=== PATIENT | male | born 1950 | race Caucasian/White ===

== ENCOUNTER 2016-12-13 11:39 | Emergency (ER) | payer BC ==
[2016-12-13 11:51] VITALS: BP 143/95
--- NOTE | 2016-12-13 12:13 | ED ---
Back Pain - HPI Summary HPI Summary: 66M presents with right leg pain for 2 days. he admits it to be sharp pain down right leg. He denies any injury. He does have back pain on the right side of his lower back. He has not history of sciatica. He states he has had numbness in his thigh before but now it is just different types of pain. He has been taking Tylenol, ibuprofen, and chiropractor without relief. He denies any loss of bowel or bladder or saddle anaesthesia. - History of Current Complaint Chief Complaint: EDHipPelvisInjury Stated Complaint: RT HIP/LEG PAIN Time Seen by Provider: 12/13/16 11:55 Pain Intensity: 8 - Allergies/Home Medications Allergies/Adverse Reactions: Allergies Allergy/AdvReac Type Severity Reaction Status Date / Time No Known Allergies Allergy Verified 12/01/16 09:53 PMH/Surg Hx/FS Hx/Imm Hx Endocrine/Hematology History: Denies: Hx Diabetes Cardiovascular History: Reports: Hx Coronary Artery Disease, Hx Hypertension - ON MEDS, Hx Myocardial Infarction - 2003 Denies: Hx Congestive Heart Failure, Hx Pacemaker/ICD History: Denies: Hx Renal Disease Sensory History: Denies: Hx Hearing Aid Psychiatric History: Reports: Hx Anxiety Denies: Hx Panic Disorder - Surgical History Surgery Procedure, Year, and Place: TONSILECTOMY. CARPAL TUNNEL RIGHT WRIST Infectious Disease History: No Infectious Disease History: Denies: Traveled Outside the [place] in Last 30 Days - Family History Known Family History: Positive: None, Cardiac Disease, Hypertension - BOTH PARENTS, Other - PROSTATE CA - Social History Alcohol Use: Occasionally Hx Substance Use: No Substance Use Type: Reports: None Hx Tobacco Use: No Smoking Status (MU): Never Smoked Tobacco Review of Systems Negative: Fever Negative: Chest Pain Negative: Shortness Of Breath Positive: Myalgia - right sided back and leg pain All Other Systems Reviewed And Are Negative: Yes Physical Exam Triage Information Reviewed: Yes Vital Signs On Initial Exam: Initial Vitals Temp Pulse Resp BP Pulse Ox 97.8 F 74 16 143/95 97 12/13/16 11:48 12/13/16 11:48 12/13/16 11:48 12/13/16 11:48 12/13/16 11:48 Vital Signs Reviewed: Yes Appearance: Positive: Pain Distress Skin: Positive: Warm, Dry Head/Face: Positive: Normal Head/Face Inspection Eyes: Positive: Normal, Conjunctiva Clear Respiratory/Lung Sounds: Positive: Clear to Auscultation, Breath Sounds Present Cardiovascular: Positive: Normal, RRR Musculoskeletal: Positive: Strength/ROM Intact - back, Other - no midline tender back, tender over right SI joint, pos SLR right Neurological: Positive: Reflexes Intact - patella Diagnostics - Vital Signs Vital Signs Temp Pulse Resp BP Pulse Ox 12/13/16 11:48 97.8 F 74 16 143/95 97 - Laboratory Lab Statement: Any lab studies that have been ordered have been reviewed, and results considered in the medical decision making process. Back Pain Course/Dx - Course Course Of Treatment: 66M presents with right leg pain for 2 days. he admits it to be sharp pain down right leg. He denies any injury. He does have back pain on the right side of his lower back. He states he has had numbness in his thigh before but now it is just different types of pain. on exam tender over SI joint with pos SLR. will treat as scatica with prednisone and flexeril. patient understands and agrees with plan - Diagnoses Differential Diagnosis/HQI/PQRI: Positive: Fracture, Strain, Other - sciatica Provider Diagnoses: Sciatica Discharge - Discharge Plan Condition: Good Disposition: HOME Prescriptions: Cyclobenzaprine TAB* [Flexeril 10 MG TAB*] 10 mg PO TID PRN #9 tab PRN Reason: Pain Gabapentin CAP(*) [Neurontin 100 mg CAP(*)] 200 mg PO TID #15 cap Methylprednisolone [Medrol Dosepak 4 MG*] 4 mg PO .SEE CARLOS INSTRUCTION #1 packet Patient Education Materials: Sciatica (ED) Referrals: Howard Henley MD [Primary Care Provider] - Additional Instructions: Follow directions on package for Medrol pack Take muscle relaxers three times a day for 3 days Take gabapentin three times a day Use ibuprofen or Tylenol for pain every 6-8 hours ice/heat area, move as much as possible Follow up with primary within 5 days Return to ED if develop any new or worsening symptoms
== END 2016-12-13 12:40 | disposition home or self-care (01) ==
LOC: ED 11:39
DX: M54.30 Sciatica, unspecified side (principal); M79.606 Pain in leg, unspecified
CPT/HCPCS: 99281

== ENCOUNTER 2017-09-01 11:37 | Inpatient (IN) | payer BC ==
--- OUTSIDE RECORDS SUMMARY | 2017-09-01 11:51 | XMS REPORT ---
:1950 External Reference #:[id number] Author Organization [facility] Address [address] [address] Phone [phone] Care Team Providers Name Role Phone Bill Deluna MD Care Team Information Professional Model Unavailable Howard Henley MD Primary Care Physician Unavailable Payers Type Date Identification Numbers Payment Provider Subscriber Commercial Effective: Policy Number: [id number] [employer] Wili Edwards 2013 PayID: [id number] [address] [address] [place] [address] Medigap Part B Effective: 2012 Policy Number: [employer] Wili Edwards [id number] Expires: 2013 PayID: [id number] [address] [address] [place] [address] Problems Date Description Provider Status Onset: 07/19/2016 Premature beats Beatrice Rivera M.D. Active Onset: 01/22/2016 Spondylolisthesis L5/S1 level Tu Boss M.D. Active Onset: 01/22/2016 Transient cerebral ischemia Tu Boss M.D. Active Onset: 12/19/2014 Obesity Beatrice Rivera M.D. Active Onset: 03/12/2013 Coronary arteriosclerosis Beatrice Rivera M.D. Active Onset: 03/12/2013 Morbid obesity Beatrice Rivera M.D. Active Onset: 03/12/2013 Pure hypercholesterolemia Beatrice Rivera M.D. Active Onset: 03/12/2013 Essential hypertension Beatrice Winn, M.D. Active Family History Date Family Member(s) Problem(s) Comments General Coronary Artery Disease (CAD) General Prostate Cancer Father Coronary Artery Disease (CAD) 60's Father Prostate Cancer Mother Coronary Artery Disease (CAD) 80's and lived to 96 yo Social History Type Date Description Comments Occupation Publishing Cigarette Use Former Cigarette Smoker ETOH Use Occasionally consumes beer ETOH Use Occasionally consumes liquor Smoking Patient is a former smoker quit smoking 1981 Recreational Drug Use Denies Drug Use Daily Caffeine Consumes on average 4 cups of regular coffee per day Exercise Type/Frequency Exercises sporadically Allergies, Adverse Reactions, Alerts Date Description Reaction Status Severity Comments 03/12/2013 NKDA active 12/19/2014 Pollen active per patient 12/19/2014 Ragweed active per patient Medications Medication Date Status Form Strength Qnty SIG Indications Ordering Provider Zetia Active Tablets 10mg 90tabs 1 by mouth Beatrice 014 every day Miguel, ( taken at M.D. night) Lipitor Active Tablets 80mg 90tabs 1 by mouth Beatrice 013 every Winn, night at M.D. bedtime Multi Complete Active Capsules daily Other 013 Ordering Provider Lisinopril Active Tablets 2.5mg 180tab 1 tab by Beatrice 013 s mouth Miguel, twice a M.D. day Folic Acid Active Tablets 400mcg take one Unknown 000 tablet by mouth every day (supplemen t) Mateo Aspirin Active Tablets DR 81mg 1 by mouth Unknown Ec Low Dose 000 every day Am ( Med change decrease May 2017) Gabapentin Active Capsules 100mg 1 cap po Darlow, 000 Am as frank Sanchez MD Tramadol HCL Active Tablets 50mg 1 tablet Gregorie, 000 po as frank Olivares ( last taken Jun 2017) Aspirin Hx Tablets 325mg 1 po qd Other 013 - Ordering Provider 018 Folic Acid Hx Tablets 800mcg 90tabs 1 po qd Other 013 - Ordering Provider 016 B Complex Plus Hx Tablets 1 po qd Unknown 000 - 014 Sertraline HCL Hx Tablets 25mg 1 tablet Unknown 000 - bid 018 Glucosamine 00/00/0 Hx Capsules 500mg 1 by mouth Unknown 000 - every day 016 Vital Signs Date Vital Result Comment 08/21/2017 Height 66 inches 5'6" Weight 240.00 lb with out shoes Heart Rate 80 /min BP Systolic Sitting 120 mmHg Lue lg cuff BP Diastolic Sitting 70 mmHg Lue lg cuff BP Systolic Standing 100 mmHg Lue lg cuff BP Diastolic Standing 80 mmHg Lue lg cuff Respiratory Rate 17 /min BMI (Body Mass Index) 38.7 kg/m2 07/19/2016 Height 65 inches 5'5" Weight 237.00 lb w/o shoes Heart Rate 100 /min BP Systolic Sitting 116 mmHg Lue, lg cuff BP Diastolic Sitting 76 mmHg Lue, lg cuff BP Systolic Standing 114 mmHg Lue BP Diastolic Standing 76 mmHg Lue Respiratory Rate 16 /min BMI (Body Mass Index) 39.4 kg/m2 Ejection Fraction 55% as of 06/30/03 echo 01/22/2016 Height 65 inches 5'5" Weight 232.00 lb Heart Rate 60 /min BP Systolic Sitting 126 mmHg BP Diastolic Sitting 78 mmHg Respiratory Rate 16 /min Pain Level 5 BMI (Body Mass Index) 38.6 kg/m2 09/01/2015 Height 64.25 inches 5'4.25" Weight 230.00 lb no shoes Heart Rate 102 /min BP Systolic Sitting 126 mmHg Ra lrg cuff BP Diastolic Sitting 70 mmHg Ra lrg cuff BP Systolic Standing 124 mmHg Ra lrg cuff BP Diastolic Standing 72 mmHg Ra lrg cuff Respiratory Rate 16 /min BMI (Body Mass Index) 39.2 kg/m2 02/17/2015 Height 64.25 inches 5'4.25" Weight 229.00 lb with shoes Heart Rate 90 /min BP Systolic Sitting 110 mmHg LA lg cuff BP Diastolic Sitting 74 mmHg LA lg cuff BP Systolic Standing 118 mmHg LA lg cuff BP Diastolic Standing 70 mmHg LA lg cuff Respiratory Rate 18 /min BMI (Body Mass Index) 39.0 kg/m2 12/19/2014 Height 64.25 inches 5'4.25" Weight 230.75 lb with shoes Heart Rate 92 /min BP Systolic Sitting 110 mmHg LA reg cuff BP Diastolic Sitting 80 mmHg LA reg cuff BP Systolic Standing 110 mmHg LA reg cuff BP Diastolic Standing 86 mmHg LA reg cuff Respiratory Rate 17 /min BMI (Body Mass Index) 39.3 kg/m2 04/30/2014 Height 64.25 inches 5'4.25" Weight 219.00 lb no shoes Heart Rate 88 /min BP Systolic Sitting 122 mmHg LA, reg cuff BP Diastolic Sitting 86 mmHg LA, reg cuff BP Systolic Standing 112 mmHg LA BP Diastolic Standing 86 mmHg LA Respiratory Rate 16 /min BMI (Body Mass Index) 37.3 kg/m2 03/12/2013 Height 65 inches 5'5" Weight 217.00 lb Heart Rate 78 /min BP Systolic Sitting 120 mmHg Ra reg cuff BP Diastolic Sitting 84 mmHg Ra reg cuff BP Systolic Standing 122 mmHg Ra BP Diastolic Standing 84 mmHg Ra Respiratory Rate 16 /min BMI (Body Mass Index) 36.1 kg/m2 Results Test Date Test Result H/L Range Note Laboratory test finding 03/28/2016 LDL Cholesterol Direct 55 mg/dL 1 Ast (Sgot) 29 U/L 13-39 Laboratory test finding 01/26/2016 Blood Urea Nitrogen BUN 21 mg/dL 6-24 Creatinine 01/26/2016 Creatinine 0.73 mg/dL 0.67-1.17 Egfr Non- 108.5 >60 Egfr 139.6 >60 2 Lipid Profile (Trig/Chol/HDL) 04/05/2013 Triglycerides 88 mg/dL 40-200 Cholesterol 230 mg/dL High Less than 200 HDL Cholesterol 46 mg/dL 40-60 3 Cholesterol/HDL Ratio 5.0 Average High 1-4.44 LDL Cholesterol 166.4 High Less Than 100 4 1 Desirable: <100 mg/dL Near Optimal: 100-129 mg/dL Borderline High: 130-159 mg/dL High: 160-189 mg/dL Very High: >189 mg/dL 2 Because ethnic data is not always readily available, this report includes an eGFR for both -Americans and non- Americans. The National Kidney Disease Education Program (NKDEP) does not endorse the use of the MDRD equation for patients that are not between the ages of 18 and 70, are , have extremes of body size, muscle mass, or nutritional status, or are non- or non-. According to the National Kidney Foundation, irrespective of diagnosis, the stage of the disease is based on the level of kidney function: Stage Description GFR(mL/min/1.73 m(2)) 1 Kidney damage with normal or decreased GFR 90 2 Kidney damage with mild decrease in GFR 60-89 3 Moderate decrease in GFR 30-59 4 Severe decrease in GFR 15-29 5 Kidney failure <15 (or dialysis) 3 HDL Interpretation: Undesirable: High Risk: Less than 40 mg/dL Desirable: Low Risk: Greater than 60 mg/dL 4 LDL Interpretation: Low Risk Optimal Level: LDL Less than 100 mg/dL Near or Above Optimal: LDL 100-129 mg/dL Borderline High Risk: LDL 130-159 mg/dL High Risk: LDL 160-189 mg/dL Very High Risk: LDL Greater than 189 mg/dL Procedures Date CPT Code Description Status 08/21/2017 24260 EKG Tracing & Interpretation Completed 08/16/2016 22238 Stress Test Completed 07/19/2016 24916 EKG Tracing & Interpretation Completed 12/19/2014 08675 EKG Tracing & Interpretation Completed 06/10/2014 84789 Stress Test Completed 04/30/2014 34193 EKG Tracing & Interpretation Completed 04/22/2013 56246 Stress Test Completed 03/12/2013 57384 EKG Tracing & Interpretation Completed Encounters Type Date Location Provider CPT E/M Dx Office Visit 08/21/2017 [facility] Hafsa Rivera M.D. 14646 I25.10 2:40p Aircraft [employer]er I10 E78.00 Z68.38 Office Visit 07/19/2016 9:00a [facility] Hafsa Rivera M.D. 55251 I25.10 [facility] Z68.39 I49.3 I10 E78.00 Office Visit 01/22/2016 10:45a [facility] Tu Boss M.D. 96269 G45.9 Of [facility] M43.17 M62.81 R20.2 Office Visit 11/21/2015 3:40p [facility] Renay Brooks 62482 R20.9 Dylon R53.1 N39.3 Office Visit 09/01/2015 8:30a [facility] Hafsa Rivera M.D. 66074 I25.10 [employer]er E78.0 I10 E66.09 Office Visit 02/17/2015 10:00a [facility] Hafsa Rivera M.D. 33660 414.01 Aircraft [employer]er 272.0 Office Visit 12/19/2014 3:15p [facility] Beatrice Rivera M.D. 97786 414.01 [facility] 401.9 272.0 278.00 Office Visit 04/30/2014 8:15a [facility] Hafsa Rivera M.D. 70208 414.01 [facility] 401.9 272.0 278.01 786.50 Office Visit 03/12/2013 11:30a [facility] Beatrice Rivera M.D. 71172 401.9 [facility] 272.0 278.01 414.01 Plan of Care Future Appointment(s):09/14/2017 3:30 pm - Edda Dumont N.P. at [facility]09/08/2017 7:00 am - [facility] Nuclear Schedule at [facility]08/21/2017 - Beatrice Rivera M.D.I25.10 Athscl heart disease of [place] coronary artery w/o ang pctrsNew Orders:EchocardiogramFollow up:After echo, (or [employer] if I am not available) Annual OVI10 Essential (primary) [id number] Pure hypercholesterolemia, [id number] Body mass index (BMI) 38.0-38.9, adult
[2017-09-01] MEDS ORDERED: Methocarbamol TAB* 500 MG PO ONE (12:40)
[2017-09-01] MEDS ORDERED: HYDROcodone/ACETAMIN 5-325 MG* 1 TAB PO ONE (12:40)
--- NOTE | 2017-09-01 12:41 | ED ---
Back Pain - HPI Summary HPI Summary: 66 mg ED with complaints of right lower back pain that began this morning upon waking up. Patient states he has had a violent cough for the past week or so and feels this may have exacerbated his back pain. He is concerned because he had surgery on his lower back L3-L4 disc in March 2017, by Dr Mercado at [facility]. He has not had any complications or problems since until recently. Denies any numbness tingling, weakness, bladder/bowel incontinence or saddle anesthesia. Patient took 400 mg of ibuprofen today around 9 AM with some relief. However over the past few hours his pain has increased. Denies any urinary symptoms no history of kidney stone. States the pain radiates from his right lower back down to his right leg. Describes the pain to be a constant nagging pain similar to the pain he had prior to his back surgery. No abdominal pain chest pain and trouble breathing or other complaints at this time. Past medical history significant for OR, hypertension, high cholesterol. No fever or chills. No other recent trauma or injury other than coughing fits. ---A few hours after arrival began having weakness and paresthesia of right lower leg, below the knee as described in physical exam, re-evals, and course of treatment. - History of Current Complaint Chief Complaint: EDBackInjuryPain Stated Complaint: LOW BACK PAIN Time Seen by Provider: 09/01/17 12:03 Hx Obtained From: Patient Onset/Duration: Sudden Onset, Lasting Hours, Still Present, Worse Since Onset/Duration: Started Hours Ago, Still Present Timing: Constant Back Pain Location: Is Discrete @ - Right lower back Severity Initially: Mild Severity Currently: Moderate Pain Intensity: 7 Pain Scale Used: 0-10 Numeric Character: Aching Aggravating Symptom(s): Movement - Changing positions, Walking - Weight-bearing Alleviating Symptom(s): Rest, OTC Meds - Ibuprofen helped some Associated Signs And Symptoms: Positive: Pain with Weight Bearing. Negative: Swelling, Redness, Bruising, Weakness, Numbness, Tingling, Abdominal Pain, Bladder Incontinence, Bowel Incontinence - Risk Factors AAA Risk Factors: Hypertension, Atherosclerosis TAD Risk Factors: Negative Cauda Equina Risk Factors: Negative Epidural Abscess Risk Factors: Negative - Allergies/Home Medications Allergies/Adverse Reactions: Allergies Allergy/AdvReac Type Severity Reaction Status Date / Time No Known Allergies Allergy Verified 09/01/17 12:02 PMH/Surg Hx/FS Hx/Imm Hx Endocrine/Hematology History: Denies: Hx Diabetes Cardiovascular History: Reports: Hx Coronary Artery Disease, Hx Hypertension - ON MEDS, Hx Myocardial Infarction - 2003 Denies: Hx Congestive Heart Failure, Hx Pacemaker/ICD History: Denies: Hx Renal Disease Sensory History: Denies: Hx Hearing Aid Psychiatric History: Reports: Hx Anxiety Denies: Hx Panic Disorder - Surgical History Surgery Procedure, Year, and Place: TONSILECTOMY. CARPAL TUNNEL RIGHT WRIST. L4/L5 back surgery march 2017 - Immunization History Immunizations Up to Date: Yes Infectious Disease History: No Infectious Disease History: Denies: Traveled Outside the [place] in Last 30 Days - Family History Known Family History: Positive: None, Cardiac Disease, Hypertension - BOTH PARENTS, Other - PROSTATE CA - Social History Alcohol Use: Occasionally Hx Substance Use: No Substance Use Type: Reports: None, Prescribed Hx Tobacco Use: No Smoking Status (MU): Former Smoker Review of Systems Constitutional: Negative - I Cardiovascular: Negative Respiratory: Negative Positive: Arthralgia, Myalgia - back pain Skin: Negative All Other Systems Reviewed And Are Negative: Yes Physical Exam Triage Information Reviewed: Yes Vital Signs On Initial Exam: Initial Vitals Temp Pulse Resp BP Pulse Ox 96 F 102 16 130/85 97 09/01/17 11:44 09/01/17 11:44 09/01/17 11:44 09/01/17 11:44 09/01/17 11:44 Vital Signs Reviewed: Yes Appearance: Positive: Well-Appearing, No Pain Distress - Resting comfortably in stretcher however with moving changing positions mild to moderate discomfort, Well-Nourished Skin: Positive: Warm, Skin Color Reflects Adequate Perfusion, Dry, Other - No edema or ecchymosis or signs of trauma/deformity. Negative: Cold, Numb, Cyanosis @, Pale, Erythema @ Head/Face: Positive: Normal Head/Face Inspection Eyes: Positive: Conjunctiva Clear ENT: Positive: Pharynx normal Neck: Positive: Supple Respiratory/Lung Sounds: Positive: Clear to Auscultation, Breath Sounds Present. Negative: Rales, Rhonchi, Wheezes Cardiovascular: Positive: Normal, RRR, Pulses are Symmetrical in both Upper and Lower Extremities. Negative: Murmur, Rub Abdomen Description: Positive: Nontender, Soft Bowel Sounds: Positive: Present Musculoskeletal: Positive: Normal, Strength/ROM Intact - Right lower extremity strength (2/5) with flexion of hip and extension of right LE knee and decreased significantly compared to left lower extremity, Pain @ - With changing positions right lower back. On palpation of right lower back region L4-S2 right paraspinal muscle, Other - No spinal tenderness.. Negative: Limited @, Interruption @, Abnormal @, Edema Left, Edema Right Neurological: Positive: Normal, Sensory/Motor Intact, Alert, Oriented to Person Place, Time, Reflexes Intact, NV Bundle Intact Distally - slight paresthesia that began over medial lower calf along L3/L5 innervation, Unable to Assess Gait - was able to walk into ED however during stay began having weakness of RLE and unable to walk without RLE giving out when doing so Diagnostics - Vital Signs Vital Signs Temp Pulse Resp BP Pulse Ox 09/01/17 11:44 96 F 102 16 130/85 97 - Laboratory Result Diagrams: 09/01/17 15:38 09/01/17 15:38 Lab Statement: Any lab studies that have been ordered have been reviewed, and results considered in the medical decision making process. - CT lumbar spine CT Interpretation: Positive (See Comments) - No fracture of the lumbar spine is noted. There is grade 1 spondylolisthesis of L5 on S1 with spondylolysis of the pars interarticularis at L5 on the right. Calcified posterior longitudinal ligament is noted at L4-L5. There is suggestion of a right paracentral disc extrusion which may impinge upon the right exiting nerve root at L4 on the right. The disc appears to be migrating from the L3-L4 disc space. At L3-L4 broad-based protrusion may narrow the intervertebral foramen bilaterally. Additionally there is a soft tissue presumed extrusion migrating inferiorly impinging upon the right lateral recess and right descending L4 nerve root. At L2-L3 broad-based protrusion flattens the thecal sac. L1-L2 vacuum disc phenomenon with left paracentral disc protrusion indenting the thecal sac. CT Interpretation Completed By: Radiologist Re-Evaluation - Re-Evaluation First Eval Re-Evaluation Time: 13:40 Change: Worse - Pain and muscle spasms improved after Robaxin and [place] for pain. however began having difficulty with extending right leg and increased weakness/paresthesia of medial lower calf (L3-L5 innervation). Updated on CT results. Second Eval Re-Evaluation Time: 14:58 Change: Unchanged - still feeling the same as before, updated waiting computational theory scientist back from patients neurosurgeon, Dr Mercado at [facility]. almost fell to ground upon attempting to walk due to weakness of right lower leg, knee down Third Eval Re-Evaluation Time: 15:36 Change: Unchanged - updated spoke with Dr Mercado who stated needs an MRI Back Pain Course/Dx - Course Course Of Treatment: Normal physical exam other than right side lower back pain that however worsened upon re-eval and began having right lower leg weakness with extension and weight bearing along with a mild paresthesia of medial calf along L3/L4 innervation. Given [place] and Robaxin for pain and muscle spasms and did have relief, however weakness still progressed. CT obtained and showed multiple degenerative changes and disc protrusions throughout L3-S2. Spoke with Dr Mercado, Patient's neuro surgeon who did his recent surgery in March of 2017, at 3:15pm who stated patient needs an MRI with contrast. Labs obtained. Patient understands and agrees with plan. Patient will be signed out to [facility] pending patient's MRI/results. Also spoke with Dr Contreras about case. - Diagnoses Differential Diagnosis/HQI/PQRI: Positive: Cauda Equina Syndrome, Compressive Cord Syndrome, Herniated Disc, Strain, Sprain Provider Diagnoses: Low back pain, Weakness of right lower extremity, Paresthesia of right lower extremity - Provider Notifications Discussed Care Of Patient With: Dr Mercado, Neurosurgery [facility], [facility] Edge Time Discussed With Above Provider: 15:15 Instructed by Provider To: Other - obtain MRI Discharge - Sign-Out/Discharge Documenting (check all that apply): Sign-Out Patient Signing out patient TO: Milagro Yañez - at shift change 5:30pm - Discharge Plan Condition: Good Referrals: Howard Henley MD [Primary Care Provider] - - Billing Disposition and Condition Condition: GOOD
--- NOTE | 2017-09-01 13:56 | RAD ---
Indication: Back pain, surgery at L4-L5. CT of the lumbar spine was obtained in the axial plane. Sagittal and coronal reconstructed images were obtained. There is grade 1 spondylolisthesis of L5 on S1. There is right-sided spondylolysis of the pars interarticularis. Degenerative changes of the left facet joint is noted. Broad-based protrusion is noted. At L4-L5 there is degenerative disc disease with broad-based protrusion. There is calcification of the posterior longitudinal ligament. There is suggestion of soft tissue in the right lateral recess which appears to have migrated inferiorly from the L3-L4 level impinging upon the right L4 nerve root. Facet arthropathy is noted bilaterally. Mild spinal stenosis is noted. At L3-L4 broad-based protrusion flattens the thecal sac. Again noted is a right paracentral to right posterolateral disc extrusion which indents the right thecal sac and narrows the right lateral recess with disc migrating inferiorly impinging upon the right L4 nerve root. Mild facet arthropathy is noted. No fracture is noted. At L2-L3 there is degenerative disc disease. Spondylitic ridge flattens the thecal sac. Facet arthropathy is noted. At L1-L2 there is a left paracentral disc protrusion indenting the thecal sac. No foraminal stenosis is noted. No evidence of fracture is noted. At T12-L1 spondylitic ridge with calcified posterior longitudinal ligament is noted indenting the thecal sac. No central or foraminal stenosis is noted. IMPRESSION: No fracture of the lumbar spine is noted. There is grade 1 spondylolisthesis of L5 on S1 with spondylolysis of the pars interarticularis at L5 on the right. Calcified posterior longitudinal ligament is noted at L4-L5. There is suggestion of a right paracentral disc extrusion which may impinge upon the right exiting nerve root at L4 on the right. The disc appears to be migrating from the L3-L4 disc space. At L3-L4 broad-based protrusion may narrow the intervertebral foramen bilaterally. Additionally there is a soft tissue presumed extrusion migrating inferiorly impinging upon the right lateral recess and right descending L4 nerve root. At L2-L3 broad-based protrusion flattens the thecal sac. L1-L2 vacuum disc phenomenon with left paracentral disc protrusion indenting the thecal sac.
[2017-09-01 15:51] LABS: Hematocrit 41 % (42-52); Hemoglobin 14.2 g/dl (14.0-18.0); Mean Corpuscular HGB Conc 35 g/dl (31-36); Mean Corpuscular Hemoglobin 32 pg (27-31); Mean Corpuscular Volume 90 fL (80-94); Mean Platelet Volume 7.5 um3 (7.4-10.4); Platelet Count 239 10^3/ul (150-450); Red Blood Count 4.51 10^6/ul (4.0-5.4); Red Cell Distribution Width 13 % (10.5-15); White Blood Count 8.5 10^3/ul (3.5-10.8)
[2017-09-01 16:19] LABS: EGFR Non-African American 109.9 (>60)
[2017-09-01] MEDS ORDERED: Gadoteridol* (CONTRAST) 279.3 MG/ML 10 ML IV ONE (16:42)
[2017-09-01 17:19] LABS: Urine Appearance Clear; Urine Blood Negative (Negative); Urine Color Yellow; Urine Ketones Negative (Negative); Urine Protein Negative (Negative); Urine Specific Gravity 1.015 (1.010-1.030); Urine Urobilinogen Negative (Negative)
--- NOTE | 2017-09-01 17:28 | RAD ---
HISTORY: Right leg weakness, numbness COMPARISONS: December 06, 2016 TECHNIQUE: The following sequences were obtained of the lumbar spine: Sagittal and axial T1- and T2-weighted images, coronal T2-weighted images, and sagittal STIR images. Additionally, axial and sagittal T1 weighted images were obtained after contrast enhancement with a gadolinium-based intravenous contrast agent.. FINDINGS: SPINAL CORD, CONUS, AND CAUDA EQUINA: The visualized spinal cord, conus, and cauda equina are normal in caliber, position, and signal intensity. ALIGNMENT: There is grade 1 anterolisthesis of L5 on S1. This is stable from the previous examination. VERTEBRAL BODIES: There is multilevel anterolateral marginal osteophyte formation. JOINTS: There is facet hypertrophic change diffusely MUSCULATURE: There is mild fatty infiltration. INTERVERTEBRAL DISCS: There is diffuse loss of intervertebral disc height and T2 signal throughout the spine. AXIAL IMAGES: T10-T11: There is broad-based disc bulge. There is bilateral facet hypertrophy. There is moderate bilateral neural foraminal narrowing. There is mild narrowing of the central canal. T11-T12: There is bilateral facet hypertrophy. There is mild bilateral neural foraminal narrowing. There is no significant central canal stenosis.L1-L2: There is no disc herniation, spinal stenosis, or neuroforaminal narrowing.. T12-L1: There is a small broad-based central disc protrusion measuring 0.3 cm in depth. There is no significant neural foraminal narrowing or central canal stenosis. L1-L2: There is bilateral facet hypertrophy. There is a left lateral recess inferior disc extrusion measuring 0.6 cm in depth and 0.9 cm in craniocaudal dimension. This is not clearly seen on the previous examination. This encroaches upon the descending nerve root on the left. There is bilateral facet hypertrophy. There is no significant neural foraminal narrowing or central canal stenosis. L2-L3: There is broad based disc bulge at bilateral facet hypertrophy. There is mild bilateral neural foraminal narrowing. There is no significant central canal stenosis. L3-L4: There is broad-based disc bulge at bilateral facet and ligamentous hypertrophy. There is moderate bilateral neural foraminal narrowing. There is mild narrowing of the central canal. There is a superimposed right lateral recess inferior disc extrusion measuring 1.2 cm in depth and 1.7 cm in cranial caudal dimension. This is developed from the previous examination. This abuts and displaces the descending nerve roots on the right. L4-L5: There is a broad-based disc bulge with a central disc protrusion measuring 0.3 cm in depth. This is similar to the previous examination. There is bilateral facet hypertrophy. There is moderate right and mild left neural foraminal narrowing. There is no significant central canal stenosis. L5-S1: There is a broad-based disc bulge/rolled disc. There is bilateral facet hypertrophy. There is severe bilateral neuroforaminal narrowing. There is no significant central canal stenosis. SOFT TISSUES: There is post surgical enhancement in the soft tissues posterior to the lumbar spine most pronounced at L2-L3 and L3-L4. There is no significant abnormal epidural enhancement. OTHER: None. IMPRESSION: 1. SPONDYLOLISTHESIS. 2. DEGENERATIVE DISC DISEASE AND OSTEOARTHRITIS. 3. THERE IS A LARGE RIGHT-SIDED INFERIOR DISC EXTRUSION AT L3-L4 WITH MASS EFFECT UPON THE DESCENDING NERVE ROOTS. 4. THERE IS A LEFT-SIDED INFERIOR DISC EXTRUSION AT L1-L2, ENCROACHING UPON THE DESCENDING NERVE ROOTS. 5. THERE IS A SMALL CENTRAL DISC FUSION AT T12-L1. THERE IS A SMALL CENTRAL DISC PROTRUSION AT L4-L5. 6. THERE IS MULTILEVEL NEURAL FORAMINAL NARROWING DESCRIBED ABOVE. 7. THERE IS MILD NARROWING OF THE CENTRAL CANAL AT L3-L4. 8. THERE HAS BEEN PROGRESSION OF DISEASE COMPARED TO DECEMBER 06, 2016.
--- NOTE | 2017-09-01 18:43 | ED ---
Progress - Progress Note Progress Note: sign out receive from Barbara ARREGUIN pending dispo MRI: IMPRESSION: 1. SPONDYLOLISTHESIS. 2. DEGENERATIVE DISC DISEASE AND OSTEOARTHRITIS. 3. THERE IS A LARGE RIGHT-SIDED INFERIOR DISC EXTRUSION AT L3-L4 WITH MASS EFFECT UPON THE DESCENDING NERVE ROOTS. 4. THERE IS A LEFT-SIDED INFERIOR DISC EXTRUSION AT L1-L2, ENCROACHING UPON THE DESCENDING NERVE ROOTS. 5. THERE IS A SMALL CENTRAL DISC FUSION AT T12-L1. THERE IS A SMALL CENTRAL DISC PROTRUSION AT L4-L5. 6. THERE IS MULTILEVEL NEURAL FORAMINAL NARROWING DESCRIBED ABOVE. 7. THERE IS MILD NARROWING OF THE CENTRAL CANAL AT L3-L4. 8. THERE HAS BEEN PROGRESSION OF DISEASE COMPARED TO DECEMBER 06, 2016. Barbara spoke to Dr Pruitt at [facility] who said that is is up to patient where can have surgical consult. Barbara spoke with dr bland at 5:45 and states would be happy to consult. After further discussion with Barbara patient agrees to stay at [facility]. Dr. Bland asked that the hospitalist admit the patient for pain control and inability to ambulate. I spoke with the hospitalist who agreed to admit patient. Dr bland will consult and potentially take to OR tomorrow. Re-Evaluation - Re-Evaluation First Eval Re-Evaluation Time: 13:40 Change: Worse - Pain and muscle spasms improved after Robaxin and New[place] for pain. however began having difficulty with extending right leg and increased weakness/paresthesia of medial lower calf (L3-L5 innervation). Updated on CT results. Second Eval Re-Evaluation Time: 14:58 Change: Unchanged - still feeling the same as before, updated waiting semiconductor assembler back from patients neurosurgeon, Dr Mercado at [facility]. almost fell to ground upon attempting to walk due to weakness of right lower leg, knee down Third Eval Re-Evaluation Time: 15:36 Change: Unchanged - updated spoke with Dr Mercado who stated needs an MRI Course/Dx - Course Course Of Treatment: Normal physical exam other than right side lower back pain that however worsened upon re-eval and began having right lower leg weakness with extension and weight bearing along with a mild paresthesia of medial calf along L3/L4 innervation. Given New[place] and Robaxin for pain and muscle spasms and did have relief, however weakness still progressed. CT obtained and showed multiple degenerative changes and disc protrusions throughout L3-S2. Spoke with Dr Mercado, Patient's neuro surgeon who did his recent surgery in March of 2017, at 3:15pm who stated patient needs an MRI with contrast. Labs obtained. Patient understands and agrees with plan. Patient will be signed out to Tawana ARREGUIN pending patient's MRI/results. Also spoke with Dr Contreras about case. - Diagnoses Provider Diagnoses: Low back pain, Weakness of right lower extremity, Paresthesia of right lower extremity - Provider Notifications Time Discussed With Above Provider: 15:15 Instructed by Provider To: Other - obtain MRI Discharge - Sign-Out/Discharge Documenting (check all that apply): Receiving Sign-Out Receiving patient FROM: Barbara Oviedo - Discharge Plan Condition: Good Disposition: ADMITTED TO [facility] Referrals: Howard Henley MD [Primary Care Provider] - - Billing Disposition and Condition Condition: GOOD Disposition: [facility]OSP-[facility]
[2017-09-01] MEDS ORDERED: Ondansetron INJ* 2 MG/ML VIAL IV PRN (19:25)
[2017-09-01] MEDS ORDERED: HYDROcodone/ACETAMIN 5-325 MG* 1 TAB PO PRN (19:25)
[2017-09-01] MEDS ORDERED: Cyclobenzaprine TAB* 10 MG PO PRN (19:25)
[2017-09-01] MEDS ORDERED: Morphine INJ* 2 MG/ML 1 ML CARPUJECT IV PRN (19:25)
[2017-09-01] MEDS ORDERED: Acetaminophen TAB* 325 MG PO PRN (19:25)
--- NOTE | 2017-09-01 20:07 | RAD ---
HISTORY: Hypertension, coronary artery disease COMPARISONS: December 03, 2007 VIEWS: 1: frontal portable view of the chest at 7:51 PM FINDINGS: LINES AND TUBES: None. CARDIOMEDIASTINAL SILHOUETTE: The cardiomediastinal silhouette is normal for portable technique. PLEURA: The costophrenic angles are sharp. No pleural abnormalities are noted. LUNG PARENCHYMA: The lungs are clear. ABDOMEN: The upper abdomen is clear. There is no subphrenic gas. BONES AND SOFT TISSUES: No bone or soft tissue abnormalities are noted. IMPRESSION: NO ACTIVE CARDIOPULMONARY DISEASE.
[2017-09-01] MEDS: predniSONE TAB* 20 MG PO SCH (23:15)
[2017-09-01] MEDS: Atorvastatin* 80 MG TAB PO SCH (23:15)
[2017-09-01] MEDS: Sertraline* 25 MG TAB PO SCH (23:15)
[2017-09-01] MEDS: Lisinopril TAB* 5 MG PO SCH (23:16)
--- NOTE | 2017-09-01 23:22 | HP ---
CC: Dr. Henley; Dr. Munoz * HISTORY AND PHYSICAL: DATE OF ADMISSION: 09/01/17 PRIMARY CARE PROVIDER: Dr. Henley. ATTENDING PHYSICIAN WHILE IN THE HOSPITAL: Viki Ravi MD * (report dictated by Mayo Borges NP). CHIEF COMPLAINT: Back pain. HISTORY OF PRESENT ILLNESS: Mr. Edwards is a 66-year-old male patient. He has a history of CAD and an ME in 2003, on medical management only. He has a history of left foot fracture, seasonal allergies, hypertension, hyperlipidemia, anxiety. He comes in to the ER today. He states in March he had surgery with Dr. De La Garza to his lumbar spine. He does not really know what level exactly. Initially, he has been doing great. He returned to work. He has been really pain-free; however, unfortunately, he woke up this morning and he does not really remember any precipitating factors that may have aggravated his back, but he woke up this morning, he had some back pain he thought may be, so he just took some ibuprofen and he felt better. He took a couple of ibuprofen and proceeded to go to work. While at work, he still had progressive worsening back pain. He says that the pain was really going down from the right side, down to the knee, down the front of the lower leg and to the medial aspect of his lower leg and just stopping at the ankle. He got progressively worse. He felt that he just had to go to the ER because of this history. His coworkers called the ambulance and got him into the hospital today. He states he has not had any trouble with bowel or bladder incontinence. He got here in the ED. He was initially treated with appropriate pain management. He was feeling better; however, he noticed here that when he went to extend his right leg, he could flex it, but when he went to extend the knee, he could not extend it and this was concerning and then he tried walking and ambulating, but he was having difficulty doing this. He also noted that whenever he tried get up or walk down here, he had a significant amount of pain particularly in his back. He had tried several rounds of pain medications here and interventions with no avail. Ultimately, he did have an MRI of the lower spine and there was concerning for a protruding disk at L3-4. So because of these findings, we were asked to evaluate. He denies having any chest pain or shortness of breath. He states the back does not bother him, he is feeling well, he is able to walk up a flight of stairs with no chest pain or shortness of breath. He denies any recent fevers or chills. He does state that he is getting over a sinus infection. He states he has not been coughing in the last couple of days , but he does state that he had some rhinorrhea and he had sinus drainage that he took [id number] medications and he states that he seems to have gotten over this and we feel that he feels much better in the last couple of days with the exception of his back. He denied any nausea or vomiting. Because of the persistent back pain, we were asked to evaluate for admission. PAST MEDICAL HISTORY: Significant for: 1. CAD. 2. ME in 2003. 3. Left foot fracture. 4. Seasonal allergies. 5. Hypertension. 6. Hyperlipidemia. 7. Anxiety. PAST SURGICAL HISTORY: 1. He has had a tonsillectomy. 2. Carpal tunnel. 3. Back surgery just done in March, he presumes it was lumbar spine surgery. 4. He has had a cyst removed from his right neck. FAMILY HISTORY: His mother at the age of 97 from hypertension. Father had prostate cancer, COPD, and Parkinson's. MEDICATIONS: Home meds according to the list we were able to obtain includes: 1. Zoloft 25 mg p.o. b.i.d. 2. Ibuprofen 200 mg every 6 hours as needed. 3. Folic acid 1 mg p.o. daily. 4. Aspirin 81 mg daily. 5. Multivitamin 1 tablet daily. 6. Lisinopril 2.5 mg p.o. b.i.d. 7. Zetia 10 mg p.o. daily. 8. Lipitor 80 mg p.o. at bedtime. ALLERGIES TO MEDICATIONS: Include no known drug allergies. SOCIAL HISTORY: He is a former smoker, he quit in . He occasionally drinks wine. Surrogate decision maker will be his brother, Tu. REVIEW OF SYSTEMS: There is no documented fever. He denied having any significant weight change. There was no double vision. He denies having any ear discharge. There was rhinorrhea, but none now. Denies any sore throat. No thyroid enlargement. Denies having any chest pain. There is no orthopnea. There is no nocturnal dyspnea. He denied having any abdominal pain. There is no nausea, no vomiting, no dysuria, no frequency, no seizure, no loss of consciousness, no pruritus and no skin ulcerations. Review of 14 systems was completed, all others negative. PHYSICAL EXAMINATION GENERAL: At this time, Mr. Edwards is a 66-year-old male patient. He is sitting in the ED stretcher. He does not appear to be in any acute distress. VITAL SIGNS: Blood pressure 121/82 with a pulse 82, respirations 18, O2 sat 96% , temperature 98.8. HEENT: Head: Atraumatic, normocephalic. Eyes: EOMs are intact. Sclerae anicteric, not pale. Throat: Oral mucosa appears to be moist. No oropharyngeal erythema. NECK: Supple. LUNGS: Clear to auscultation bilaterally. No wheezes, rales, or rhonchi. HEART: Sounds S1, S2. Regular rate and rhythm. No murmurs, rubs, or gallops. ABDOMEN: Soft. It was flat, nontender. Bowel sounds were present. EXTREMITIES: Pulses were 2+ throughout. He is moving his upper extremities with 5/5 strength. He has difficulty with knee extension in the right lower extremity. He has good flexion with 5/5 strength. Dorsi and plantar flexion in that right leg had 5/5 strength. He had hip flexion and extension with 5/5 strength as well. NEUROLOGIC: He is awake, alert, oriented x3. He had deficit that he did have and he cannot extend his right lower extremity. He can flex, but he cannot extend it. No gross focal deficits. SKIN: Intact. DIAGNOSTIC STUDIES/LAB DATA: WBC 8.5, RBC of 4.51, hemoglobin of 14.2, hematocrit of 41, platelet count 239. Sodium is 134, potassium 4.1, chloride of 99, bicarb of 29, BUN 13, creatinine of 0.72, glucose 132, calcium 9.2. Total bili 0.5, AST 21, ALT 27, alk phos 46. Albumin was 3.8. Urine was obtained, it was negative. He did have a lumbar spine MRI, impression: Spondylolisthesis, degenerative disk disease, and osteoarthritis. There is a large right-sided inferior disk extrusion at L3-4 with mass effect upon the descending nerve roots. There is left-sided inferior disk extrusion at L1-L2 encroaching upon the descending nerve roots. There is a small central disk extrusion at T12-L1. There is a small central disk protrusion at L4-5. There is multilevel neural foraminal narrowing as described above. There is mild narrowing of the central canal at L3-4. There has been progression of disease compared to the MRI of 2017. Lumbar CT, impression: No fracture of the spine is noted, grade I spondylolisthesis L5 and S1 with spondylolisthesis of the pars interarticularis at L5 on the right. Calcified posterior longitudinal ligament is noted at L4- 5. There is suggestion of a right paracentral disk extrusion, which may impinging upon the right exiting nerve root at L4 on the right. The disk appears to be migrating from the L3-4 disk space. The L3-4 broad-based protrusion may narrow the intervertebral foramen bilaterally. Additionally, there has been soft tissue, presumed extrusion migrating inferiorly impinging upon the right lateral recess and right thinning L4 nerve root. L2-3 broad based protrusion flattened the thecal sac, L1-L2 vacuum disk phenomenon with left paracentral disk protrusion indenting the thecal sac. He had an EKG obtained today showing a normal sinus rhythm, rate of 84, no ST elevations or T-wave inversion. Old medical records were reviewed. ASSESSMENT AND PLAN: Mr. Edwards is a 66-year-old male patient with multiple medical problems, coming into the hospital today with complaints of back pain and now right lower extremity weakness. We were asked to evaluate for admission. He will be admitted under observation status for: 1. Lumbar radiculopathy and myelopathy. I did touch base with Dr. Munoz. He will be evaluating the patient tonight. The plan would be to continue his steroids, pain management, PT evaluation. I will have Dr. Munoz evaluate and to see if surgery is most likely indicated, but I will defer that recommendation to Dr. Munoz. In terms of RCRI, his RCRI is moderate risk with a history of coronary artery disease, but he has not had any cardiac symptoms of late. I do think an EKG, which I have obtained is stable. In addition to this, we will get a chest x-ray. If the chest x-ray is stable, then I would state that he is medically optimized. I would recommend continuing his aspirin as soon as possible given his disease process. Given the history of coronary artery disease, I would recommend continuing with aspirin. We will continue his beta-mike. 2. Coronary artery disease. He is on aspirin and statin therapy. We will continue with these medications for the time being and Zetia and we will continue his lisinopril with the exception, we will hold it tomorrow morning if surgery is going to be pursued. 3. Hyperlipidemia. Continue statin therapy. 4. Seasonal allergies. Continue meds as prescribed. 5. Hypertension. Continue lisinopril with the exception of tomorrow morning. We will hold this and then restart in the postoperative setting if surgery is pursued. 6. DVT prophylaxis. Because there is possible spinal surgery tomorrow, I am just going to place him on SCDs. 7. Code status. Full code. 8. Fluids, electrolytes, and nutrition. He can have a heart healthy diet and n.p.o. after midnight. TIME SPENT: On admission 60 minutes, greater than half the time spent face-to- face with the patient obtaining my history and physical; other half time spent going over the plan of care with the patient and implementing plan of care. I discussed the plan of care with my attending, Dr. Ravi; she is in agreement. MAYO BORGES NP [id number]/CPS #: [id number] CAREN
--- NOTE | 2017-09-02 01:27 | CONS ---
Amended report to enter date of consultation. CONSULTATION REPORT: DATE OF CONSULT: 09/01/2017. HISTORY OF PRESENT ILLNESS: The patient is a very pleasant 66-year-old gentleman with history of SD several years ago, coronary artery disease, hypertension, who had history of recent lumbar diskectomy in March [address] De La Garza. The patient reported that his pain started approximately in May 2016 when he had an episode of abrupt warmth sensation in the lower extremities. At that time, he lost control of his bladder and his bowel as well as control of his lower extremities. He started to improve gradually with physical therapy and the injections, but because of persistence of back pain, he underwent lumbar diskectomy at L3-4 as reported by ED in March [address] De La Garza. The patient did quite well after the surgery until recently approximately 1 week ago, he had episode of sinusitis with very violent coughing. This morning, he started experiencing back pain that progressed to be quite severe and sharp radiating to the right lower extremity, resembling the pain that he had prior to his diskectomy. The patient came to the emergency room and was given pain medications, the pain subsided, but he was found to have significant weakness of the right lower extremity especially in knee extension. The patient was unable to ambulate and was admitted for pain control and observation. Requested to see the patient by the emergency room team after contacting Dr. De La Garza and Dr. De La Garza's partner, who gave the option to the patient to decide if he would like to follow up for his care with Dr. De La Garza or stay locally in our hospital. The patient was seen. He reports that his pain has significantly improved, but he still has back pain radiating to the right lower extremity. He has significant weakness especially in the knee extension with significant numbness in the right lower extremity below the knee. He denies loss of bladder or bowel control, but he reports that he is not able to ambulate, he cannot put his strength to support his body weight on the right lower extremity. The patient is accompanied at this point by his son. PAST MEDICAL HISTORY: Hypertension, coronary artery disease status post SD in 2004. PAST SURGICAL HISTORY: Back surgery in March 2017, tonsillectomy, carpal tunnel release on the right. MEDICATIONS: Not available for our review, but the patient reports that he is taking blood pressure medication. ALLERGIES: No known drug allergies. FAMILY HISTORY: Noncontributory. SOCIAL HISTORY: Tobacco negative. Alcohol occasionally. Recreational drug use , negative. 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 He is . PHYSICAL EXAM: The patient is not in acute distress. He is awake, alert, and oriented x3. His pupils are equal and reactive. Cranial nerves II through XII are grossly intact. Motor 4-5/5 in all extremities with the exception of his right hip flexion, which is 3-4/5, knee extension which is 0-1/5. Foot dorsiflexion, which is 4-/5, right EHL which is 4-/5. Sensory is grossly intact to light touch with the exception of decreased sensation on the right L4 and L5 distribution. Deep tendon reflexes are +1 bilaterally with the exception of the right knee and right Achilles which was trace. No clonus. No Babinski. Adrian's negative. Straight leg raise test positive on the right at approximately 30 degrees. No tenderness to palpation of the cervical, thoracic, or lumbar spine. He has free range of motion of cervical spine. His lumbar wound is soft, clean, dry, healed very well. DIAGNOSTIC STUDIES/LAB DATA: The patient had an MRI of his lumbar spine that revealed a right L3-4 disk extruding fragment, migrating caudally close to the level of the L4 pedicle with significant mass effect against the nerve roots and the thecal sac. The patient also has evidence of multiple levels of degenerative disk disease with L5-S1 grade 1 spondylolisthesis. There is also a central mild disk herniation at T12-L1, left disk extrusion at L1-L2 where there is disk bulging with right lateral disk at L3-4. The patient had a lumbar spine CT with similar findings with calcified posterior ligament at L4-5 with vacuum disk phenomenon at L1-2. ASSESSMENT: The patient is a very pleasant 66-year-old gentleman with history of obesity, coronary artery disease, and hypertension with complaints of back pain radiating to the right lower extremity with severe right lower extremity weakness and loss of sensation with MRI findings consistent with right L3-4 disk herniation with extruded fragment. PLAN: The patient at this point has significant difficulty with daily activities, especially has significant weakness on the right lower extremity. Based on his presentation and MRI findings, the patient could be a candidate for right L3-4 diskectomy/fragmentectomy. The patient was given the option to follow up with Dr. De La Garza if he would like, but he expressed that he would like to follow up with us. At this point, the patient is admitted and will obtain medical clearance as well as pain control. We discussed the risks and benefits as well as expectations and potential complications of the procedure, with complications included, but not limited to, bleeding, infection, risk of damage to adjacent structures, coma, paralysis, , need for additional procedure, anesthesia risks, stroke, blindness, cancer, instability. The patient and his son were agreeable to the procedure, said they understood the risks, they also understood that his condition may not improve and could possibly get worse after surgery and that he may need to have additional procedures in the future. Patient not NPO. We will plan for surgical intervention once we obtain medical clearance. We would add PT/INR and type and screen in the morning blood work. The patient will be n.p.o. after midnight with IV maintenance fluids. Thank you for allowing us to participate in the care of this patient. Please do not to hesitate to contact our office in case you have any further questions or concerns regarding the care of this patient. [id number]/[facility] #: [id number] CAREN
[2017-09-02 06:05] LABS: ABS Basophils 0 10^3/ul (0-0.2); ABS Eosinophils 0 10^3/ul (0-0.6); ABS Lymphocytes 0.9 10^3/ul (1.0-4.8); ABS Monocytes 0.2 10^3/ul (0-0.8); ABS Neutrophils 7.7 10^3/ul (1.5-7.7); ABS Nucleated RBC 0 10^3/ul; Eosinophil % 0.1 % (0-6); Hematocrit 43 % (42-52); Hemoglobin 14.6 g/dl (14.0-18.0); Lymphocyte % 9.8 % (25-47); Mean Corpuscular HGB Conc 34 g/dl (31-36); Mean Corpuscular Hemoglobin 31 pg (27-31); Mean Corpuscular Volume 92 fL (80-94); Mean Platelet Volume 7.4 um3 (7.4-10.4); Nucleated Red Blood Cells % 0.1; Platelet Count 229 10^3/ul (150-450); Red Blood Count 4.65 10^6/ul (4.0-5.4); Red Cell Distribution Width 13 % (10.5-15); White Blood Count 8.9 10^3/ul (3.5-10.8)
[2017-09-02 06:23] LABS: EGFR Non-African American 108.2 (>60)
[2017-09-02 06:34] LABS: INR 0.95 (0.77-1.02)
[2017-09-02] MEDS: Lisinopril TAB* 5 MG PO SCH ×2 (07:21→20:39)
--- NOTE | 2017-09-02 07:55 | PN ---
Hospitalist Progress Note Date of Service: 09/02/17 Patient is in good spirits with decreased pain in LE. Patient complains of intermittent muscle spasms which are responsive to flexeril. Patient denies CP, SOB, N/V, Diaphoresis, or other anginal equivalent. Patient had a stress test in 08/2016 with no inducible ischemia. Patient's EKG shows poor R wave progression across the precordium anatomically consistent with previous known NE. Poor R wave progression is somewhat progressed from previous EKG but this could be due to lead placement. Patient has no other signs of ischemia. Patient had no functional restrictions outpatient and was capable of at least 4 METS. Patient RCRI score is 1 representing a .9% risk of major cardiac event during surgery. Patient has a below average risk of complication at 3.3% according to NSQIP calculator. Patient is medically optimized for surgery and requires no additional cardiac testing at this time.
[2017-09-02] MEDS: Ezetimibe TAB* 10 MG PO SCH (08:05)
[2017-09-02] MEDS: Sertraline* 25 MG TAB PO SCH ×2 (08:06→20:39)
[2017-09-02] MEDS: predniSONE TAB* 20 MG PO SCH (08:06)
[2017-09-02] MEDS ORDERED: Buffered Lidocaine 0.9% SYRIN* 5 ML/SYR SYRINGE INTRADERM ONE (08:14)
[2017-09-02] MEDS ORDERED: Dexamethasone IV* 4 MG/ML 1 ML (4 MG) IV SLOW PU ONE (08:14)
[2017-09-02] MEDS ORDERED: Acetaminophen TAB* 325 MG PO ONE (08:14)
[2017-09-02] MEDS ORDERED: Gabapentin CAP(*) 300 MG PO ONE (08:14)
[2017-09-02] MEDS ORDERED: Aspirin EC Low Dose* 81 MG TAB.EC PO SCH (09:00)
[2017-09-02] MEDS ORDERED: Calcium Carbonate CHEW TAB* 500 MG (TUMS) PO PRN (09:48)
[2017-09-02] MEDS ORDERED: Calcium Carbonate CHEW TAB* 500 MG (TUMS) ONE (10:28)
[2017-09-02] MEDS ORDERED: fentaNYL* 50 MCG/ML 2 ML VIAL (100 MCG VIAL) ONE ×2 (11:34→18:58)
[2017-09-02] MEDS ORDERED: Midazolam* 1 MG/ML 2 ML VIAL (2 MG) ONE (11:34)
[2017-09-02] MEDS ORDERED: Rocuronium* 10 MG/ML VIAL ONE (11:35)
[2017-09-02] MEDS ORDERED: Propofol* 10 MG/ML 20 ML BTL IV PUSH ONE (11:35)
[2017-09-02] MEDS ORDERED: Lidocaine 2% PF * 5 ML VIAL ONE (11:35)
[2017-09-02] MEDS ORDERED: Etomidate* 2 MG/ML 10 ML VIAL ONE (11:37)
[2017-09-02] MEDS ORDERED: Gabapentin CAP(*) 300 MG ONE (13:23)
[2017-09-02] MEDS ORDERED: Dexamethasone IV* 4 MG/ML 1 ML (4 MG) ONE (13:23)
[2017-09-02] MEDS ORDERED: Acetaminophen TAB* 325 MG ONE (13:24)
--- NOTE | 2017-09-02 13:43 | PN ---
Subjective Date of Service: 09/02/17 Interval History: Patient states the pain in his leg is much improved. Patient states that he has occasional spasms in his leg which respond to Flexeril. Patient denies F/C, N/V , Abdominal pain, Diarrhea, CP, SOB, Dysuria, incontinence, changes in sensation , or other pain. Patient discussed with Dr. Munoz and the plan is for him to go to surgery later today. Patient is in agreement with this plan. Family History: Unchanged from Admission Social History: Unchanged from Admission Past Medical History: Unchanged from Admission Objective Active Medications: Acetaminophen (Tylenol Tab*) 650 mg PO Q4H PRN PRN Reason: FEVER/PAIN Hydrocodone Bitart/Acetaminophen ([place] 5-325 Tab*) 1 tab PO Q4H PRN PRN Reason: PAIN Atorvastatin Calcium (Lipitor*) 80 mg PO BEDTIME [facility] Last Admin: 09/01/17 23:15 Dose: 80 mg Calcium Carbonate (Tums*) 500 mg PO Q4H PRN PRN Reason: INDIGESTION Cyclobenzaprine HCl (Flexeril Tab*) 10 mg PO TID PRN PRN Reason: SPASMS Last Admin: 09/01/17 23:22 Dose: 10 mg Ezetimibe (Zetia Tab*) 10 mg PO DAILY [facility] Last Admin: 09/02/17 08:05 Dose: 10 mg Lactated Ringer's (Lactated Ringers 1000 Ml Bag*) 1,000 mls @ 75 mls/hr IV PER RATE [facility] Last Admin: 09/01/17 23:14 Dose: 75 mls/hr Lactated Ringer's (Lactated Ringers 1000 Ml Bag*) 1,000 mls @ 125 mls/hr IV PER RATE [facility] Last Admin: 09/02/17 13:27 Dose: 125 mls/hr Lisinopril (Prinivil Tab*) 2.5 mg PO BID [facility] Last Admin: 09/02/17 07:21 Dose: Not Given Morphine Sulfate (Morphine Inj (Syringe)*) 2 mg IV Q2H PRN PRN Reason: PAIN Ondansetron HCl (Zofran Inj*) 4 mg IV Q6H PRN PRN Reason: NAUSEA Prednisone (Deltasone Tab*) 40 mg PO DAILY [facility] Last Admin: 09/02/17 08:06 Dose: 40 mg Sertraline HCl (Zoloft*) 25 mg PO BID [facility] Last Admin: 09/02/17 08:06 Dose: 25 mg Vital Signs - 8 hr 09/02/17 11:28 Temperature 98.4 F Pulse Rate 92 Respiratory 18 Rate Blood Pressure 130/81 (mmHg) O2 Sat by Pulse 95 Oximetry Oxygen Devices in Use Now: None Appearance: Patient is a 66yo male who appears stated age and is sitting in the bed in NAD. Eyes: No Scleral Icterus, PERRLA Ears/Nose/Mouth/Throat: NL Teeth, Lips, Gums, Clear Oropharnyx, Mucous Membranes Moist Neck: NL Appearance and Movements; NL JVP, Trachea Midline Respiratory: Symmetrical Chest Expansion and Respiratory Effort, Clear to Auscultation Cardiovascular: NL Sounds; No Murmurs; No JVD, RRR, No Edema Abdominal: NL Sounds; No Tenderness; No Distention, No Hepatosplenomegaly Lymphatic: No Cervical Adenopathy Extremities: No Edema, No Clubbing, Cyanosis Skin: No Rash or Ulcers, No Nodules or Sclerosis Neurological: Alert and Oriented x 3, NL Sensation, NL Muscle Strength and Tone , - - CN II-XII intact. Reflexes 1+ in B/L Patellar and Achilles areas. Result Diagrams: 09/02/17 05:56 09/02/17 05:56 Assess/Plan/Problems-Billing Assessment: Patient is a 66yo male with a PMH for [place], HLD, Cauda Equina syndrome who presents with worsening back and leg pain, with spinal stenosis on MRI who has been evaluated by neurosurgery and will be going to surgery later today. - Patient Problems (1) Spinal stenosis Current Visit: Yes Status: Acute Code(s): M48.00 - SPINAL STENOSIS, SITE UNSPECIFIED SNOMED Code(s): 53148933 Comment: Appreciate Neurosurgical input. Multi-level on MRI with radicular symptoms. Plan for surgery with discectomy today. Continued pain and muscle spasms responsive to flexeril. Continue prednisone. Pain medication PRN. (2) Coronary arteriosclerosis in patient with history of previous myocardial infarction Current Visit: Yes Status: Acute Code(s): I25.10 - ATHSCL HEART DISEASE OF [place] CORONARY ARTERY W/O ANG PCTRS; I25.2 - OLD MYOCARDIAL INFARCTION SNOMED Code(s): 170501209500184 Comment: [place] in 2003 with Cath without stenting. Follows with cardiology outpatient with yearly stress tests. No inducible ischemia on stress test from 08/2016. Abnormal R wave progression across the precordium. No other ischemic changes. (3) Hyperlipidemia Current Visit: Yes Status: Acute Code(s): E78.5 - HYPERLIPIDEMIA, UNSPECIFIED SNOMED Code(s): 67910585 Comment: Continue Lipitor and Zetia (4) Full code status Current Visit: Yes Status: Acute Code(s): Z78.9 - OTHER SPECIFIED HEALTH STATUS SNOMED Code(s): 624196450 (5) DVT prophylaxis Current Visit: Yes Status: Acute Code(s): OCU8104 - SNOMED Code(s): 119361281 Comment: Heparin after surgery. SCDs. Status and Disposition: Patient is admitted inpatient. Discharge when medically stable.
[2017-09-02] MEDS ORDERED: Lidocaine 1% MPF wEPI 200,000* 30 ML SDV ONE (13:48)
[2017-09-02] MEDS ORDERED: Bacitracin IV* 50,000 UNITS INJ ONE (13:48)
[2017-09-02] MEDS ORDERED: Thrombin 5,000 UNITS* 1 APPLIC KIT - topical use - TOPICAL ONE (13:48)
[2017-09-02] MEDS ORDERED: ceFAZolin 2 GM PREMIX (*) 2 GM/50 ML BAG IVPB ONE (14:35)
[2017-09-02] MEDS ORDERED: HYDROmorphone INJ* 1 MG/ML CARPUJECT SYRINGE IV PRN (17:16)
[2017-09-02] MEDS ORDERED: fentaNYL* 50 MCG/ML 2 ML VIAL (100 MCG VIAL) IV PRN (17:16)
[2017-09-02] MEDS ORDERED: diPHENhydraMINE IV* 50 MG/ML 1 ml VIAL (BENADRYL) IV PRN (17:16)
[2017-09-02] MEDS ORDERED: PROCHLORPERAZINE INJ 5 MG/ML 2 ML VIAL IV PRN (17:16)
[2017-09-02] MEDS ORDERED: oxyCODONE/Acetamin 5/325 MG* TAB PO PRN (17:16)
[2017-09-02] MEDS ORDERED: Ondansetron INJ* 2 MG/ML VIAL IV PRN (17:16)
[2017-09-02] MEDS ORDERED: HYDROcodone/ACETAMIN 5-325 MG* 1 TAB PO PRN (17:16)
[2017-09-02] MEDS ORDERED: oxyCODONE TAB* 5 MG TAB PO PRN (17:16)
[2017-09-02] MEDS ORDERED: Naloxone* 0.4 MG/ML 1 ML VIAL IV PRN (17:16)
[2017-09-02] MEDS ORDERED: HYDROmorphone INJ* 1 MG/ML CARPUJECT SYRINGE ONE (17:23)
[2017-09-02] MEDS ORDERED: Glycopyrrolate IV* 0.2 MG/ML 1 ML VIAL ONE ×2 (18:13→18:21)
[2017-09-02] MEDS ORDERED: Levalbuterol HFA INHALER* 1 PUFF MDI ONE (18:16)
[2017-09-02] MEDS ORDERED: Neostigmine Methylsulfate* 1 MG/ML 10 ML VIAL (1 mg/ml) ONE (18:21)
[2017-09-02] MEDS ORDERED: Ondansetron INJ* 2 MG/ML VIAL ONE (18:21)
--- NOTE | 2017-09-02 19:56 | RAD ---
INDICATION: Lumbar discectomy COMPARISONS: None relevant TECHNIQUE: Fluoroscopy was provided for a surgical procedure. Total fluoroscopy time is: 7.7 seconds FINDINGS: Spot images demonstrate a metallic probe at L3-L4, counting from L5 as the last lumbar type vertebral body. IMPRESSION: FLUOROSCOPY WAS PROVIDED FOR A SURGICAL PROCEDURE CPT II Codes: 6045F
[2017-09-02] MEDS: Atorvastatin* 80 MG TAB PO SCH (20:39)
--- NOTE | 2017-09-03 05:23 | OP ---
OPERATIVE REPORT: DATE OF OPERATION: 09/02/17 DATE OF : 54 SURGEON: Lynda Munoz MD INVESTIGATIVE AGENT: Scrub nurse. ANESTHESIA: General. PRE-OP DIAGNOSIS: Right L3-4 herniated nucleus pulposus. POST-OP DIAGNOSIS: Right L3-4 herniated nucleus pulposus. OPERATIVE PROCEDURE: The patient underwent right L3-4 microdiskectomy with fragmentectomy and extended foraminotomies L3 and L4. ESTIMATED BLOOD LOSS: 50 cc. COMPLICATIONS: None. SUMMARY: The patient is a very pleasant 66-year-old gentleman with history of previous lumbar surgery after recovering from reported transient paralysis of the lower extremities. Patent recovered quite well and he came to the emergency room after complaints of back pain radiating into the right lower extremity after one week of significant coughing. Patient had weakness of the right lower extremity, specifically the knee extension and hip flexion as well as numbness. MRI revealed large right L4 extruded disk fragment with lateral L3 -4 disk herniation. He was offered the option of surgical intervention. After explaining expectations, limitations, and possible complications of the procedure with the patient and his family with complications including but not limited to bleeding, infection, risk of injury to adjacent structures, paralysis , , need for additional procedures, anesthesia risk, stroke, blindness, cancer, instability, need for additional procedure, anesthesia risk. The patient and his family understood and they were in agreement to proceed with surgical intervention. Informed consent was obtained. They also understood that his condition may not improve and in fact may get worse after the surgery and that he may need to have additional procedure in the future. DESCRIPTION OF PROCEDURE: The patient was brought to the operating room and was placed under general anesthesia by the anesthesia team. He was carefully positioned prone on [place] frame on the Ankur table and all bony prominences were meticulously padded. His skin was prepped and draped in the standard fashion. The previous surgical wound was identified. Operative level was identified with intraoperative fluoroscopic imaging and the midline incision was marked on the skin. The skin was infiltrated with local anesthetic and #10 surgical blade was used to incise the skin. The incision was deepened with Bovie cautery and self- retaining retractors were introduced into the field. The dorsal fascia was divided in the right side of the midline with Bovie cautery and the paraspinal musculature was gently elevated with use of periosteal elevator and Bovie cautery. The Mayela retractor was positioned. Second surgical pause with localized intraoperative fluoroscopic imaging was obtained to confirm appropriate surgical levels. Right hemilaminotomy at L3 and partial L4 was performed with the use of high-speed drill and Kerrison punches. The procedure was then done under microscopic magnification. The ligamentum flavum was gently removed and the lateral part of the thecal sac was identified. The right L4 nerve root was then identified and it was found to be quite edematous. After gentle medial retraction of the thecal sac and the nerve root, a large disc fragment was identified under the posterior ligament as expected in the preoperative MRI. This was gently removed with pituitary rongeurs. Significant decompression was achieved after this phase. Then, attention was brought to perform diskectomy at right L3-4 level after we incised the annulus fibrosus with a #15 surgical blade. Diskectomy was performed with pituitary rongeurs and down-pushing curettes. Of note, the diskectomy was extended far laterally beyond the level of the medial border of the pedicle. Extended foraminotomy was performed at the L3-4 and L4-5 levels. After copious irrigation and confirmation of meticulous hemostasis, the nerve root and the thecal sac was found to be free of any pressure phenomenon. Incision was then closed by layers after removal of the Mayela retractor. 0 interrupted Vicryl sutures were used to approximate the dorsal fascia while the subcutaneous tissue was approximated with interrupted 2-0 Vicryl sutures. Skin was covered with Dermabond. At the end of the procedure, all counts were reported to be correct. The patient was then turned supine, was extubated and was transferred to recovery in excellent condition, moving all extremities well while his preoperative weakness was slightly improved. [id number]/[facility] #: [id number] [facility] HOSPITALSejal
[2017-09-03 05:25] LABS: ABS Basophils 0 10^3/ul (0-0.2); ABS Eosinophils 0 10^3/ul (0-0.6); ABS Lymphocytes 1.3 10^3/ul (1.0-4.8); ABS Monocytes 1.3 10^3/ul (0-0.8); ABS Neutrophils 11.3 10^3/ul (1.5-7.7); ABS Nucleated RBC 0 10^3/ul; Eosinophil % 0 % (0-6); Hematocrit 42 % (42-52); Hemoglobin 14.1 g/dl (14.0-18.0); Lymphocyte % 9.4 % (25-47); Mean Corpuscular HGB Conc 34 g/dl (31-36); Mean Corpuscular Hemoglobin 31 pg (27-31); Mean Corpuscular Volume 91 fL (80-94); Mean Platelet Volume 7.6 um3 (7.4-10.4); Nucleated Red Blood Cells % 0; Platelet Count 288 10^3/ul (150-450); Red Blood Count 4.63 10^6/ul (4.0-5.4); Red Cell Distribution Width 13 % (10.5-15)
[2017-09-03 05:45] LABS: EGFR Non-African American 95.9 (>60)
[2017-09-03] MEDS: Lisinopril TAB* 5 MG PO SCH ×2 (08:53→20:06)
[2017-09-03] MEDS: Sertraline* 25 MG TAB PO SCH ×2 (08:53→20:06)
[2017-09-03] MEDS: predniSONE TAB* 20 MG PO SCH (08:53)
[2017-09-03] MEDS: Ezetimibe TAB* 10 MG PO SCH (08:53)
--- NOTE | 2017-09-03 11:31 | PN ---
Subjective Date of Service: 09/03/17 Interval History: Patient feels well today. No pain or spasms in lower extremity, well controlled incision pain. Patient states that he has persistent weakness in his leg with numbness which has not improved from before the surgery. Patient denies F/C, N/V , CP, SOB, Palpitations, Patient has urinated a large amount, patient is passing flatus but has not had a BM. Family History: Unchanged from Admission Social History: Unchanged from Admission Past Medical History: Unchanged from Admission Objective Active Medications: Acetaminophen (Tylenol Tab*) 650 mg PO Q4H PRN PRN Reason: FEVER/PAIN Hydrocodone Bitart/Acetaminophen ([place] 5-325 Tab*) 1 tab PO Q4H PRN PRN Reason: PAIN Atorvastatin Calcium (Lipitor*) 80 mg PO BEDTIME [facility] Last Admin: 09/02/17 20:39 Dose: 80 mg Calcium Carbonate (Tums*) 500 mg PO Q4H PRN PRN Reason: INDIGESTION Cyclobenzaprine HCl (Flexeril Tab*) 10 mg PO TID PRN PRN Reason: SPASMS Last Admin: 09/01/17 23:22 Dose: 10 mg Ezetimibe (Zetia Tab*) 10 mg PO DAILY [facility] Last Admin: 09/03/17 08:53 Dose: 10 mg Lactated Ringer's (Lactated Ringers 1000 Ml Bag*) 1,000 mls @ 125 mls/hr IV PER RATE [facility] Last Admin: 09/02/17 13:51 Dose: 125 mls/hr Lisinopril (Prinivil Tab*) 2.5 mg PO BID [facility] Last Admin: 09/03/17 08:53 Dose: 2.5 mg Morphine Sulfate (Morphine Inj (Syringe)*) 2 mg IV Q2H PRN PRN Reason: PAIN Naloxone HCl (Narcan*) 0.08 mg IV Q2M PRN PRN Reason: severe induced resp depression Stop: 09/03/17 17:15 Ondansetron HCl (Zofran Inj*) 4 mg IV Q6H PRN PRN Reason: NAUSEA Prednisone (Deltasone Tab*) 40 mg PO DAILY [facility] Last Admin: 09/03/17 08:53 Dose: 40 mg Sertraline HCl (Zoloft*) 25 mg PO BID [facility] Last Admin: 03/25/18 08:53 Dose: 25 mg Vital Signs - 8 hr 09/03/17 09/03/17 09/03/17 07:44 07:56 11:08 Temperature 98.8 F Pulse Rate 95 Respiratory 18 18 Rate Blood Pressure 149/89 (mmHg) O2 Sat by Pulse 97 97 Oximetry Oxygen Devices in Use Now: None Appearance: Patient is a 66yo male who appears stated age and is sitting in the bed in NAD. Eyes: No Scleral Icterus, PERRLA Ears/Nose/Mouth/Throat: NL Teeth, Lips, Gums, Clear Oropharnyx, Mucous Membranes Moist Neck: NL Appearance and Movements; NL JVP, Trachea Midline Respiratory: Symmetrical Chest Expansion and Respiratory Effort, Clear to Auscultation Cardiovascular: NL Sounds; No Murmurs; No JVD, RRR, No Edema Abdominal: NL Sounds; No Tenderness; No Distention, No Hepatosplenomegaly Lymphatic: No Cervical Adenopathy, No Axillary Adenopathy Extremities: No Edema, No Clubbing, Cyanosis Skin: No Rash or Ulcers, No Nodules or Sclerosis Neurological: Alert and Oriented x 3, - - Decreased sensation in RLE. 2/5 strength with hip flexion and knee extension. 5/5 strength throughout otherwise. Result Diagrams: 09/03/17 04:53 09/03/17 04:53 Assess/Plan/Problems-Billing Assessment: Patient is a 66yo male with a PMH for [place], HLD, Cauda Equina syndrome who presents with worsening back and leg pain, with herniated discs on MRI who had surgery on 09/02 and is improving with persistent weakness. - Patient Problems (1) Spinal stenosis Current Visit: Yes Status: Acute Code(s): M48.00 - SPINAL STENOSIS, SITE UNSPECIFIED SNOMED Code(s): 02075703 Comment: Appreciate Neurosurgical input. Multi-level on MRI with radicular symptoms. Discectomy on 09/02. Improved pain and spasms, persistent weakness and numbness. Unable to bear weight without his leg giving out. Continue Prednisone and pain control. (2) Coronary arteriosclerosis in patient with history of previous myocardial infarction Current Visit: Yes Status: Acute Code(s): I25.10 - ATHSCL HEART DISEASE OF [place] CORONARY ARTERY W/O ANG PCTRS; I25.2 - OLD MYOCARDIAL INFARCTION SNOMED Code(s): 348175707531295 Comment: [place] in 2004 with Cath without stenting. Follows with cardiology outpatient with yearly stress tests. No inducible ischemia on stress test from 08/2016. Abnormal R wave progression across the precordium. No other ischemic changes. (3) Hyperlipidemia Current Visit: Yes Status: Acute Code(s): E78.5 - HYPERLIPIDEMIA, UNSPECIFIED SNOMED Code(s): 45285109 Comment: Continue Lipitor and Zetia (4) Full code status Current Visit: Yes Status: Acute Code(s): Z78.9 - OTHER SPECIFIED HEALTH STATUS SNOMED Code(s): 770413959 (5) DVT prophylaxis Current Visit: Yes Status: Acute Code(s): ATD6079 - SNOMED Code(s): 652138225 Comment: Heparin after surgery when cleared by neurosurgery. SCDs. Status and Disposition: Patient is admitted inpatient. Discharge when medically stable. May need rehab.
--- NOTE | 2017-09-03 12:19 | PN ---
Progress Note - Progress Note Date of Service: 09/03/17 SOAP: Subjective: []No events ON. Tolerated procedure well. Voids, Tolerates PO well. Resolved RLE pain and muscle spasms. Numbness improved. RLE weakness improving. Patient able to extend Rt Knee against gravity this am. Objective: []VSS, Afebrile, Wound s,c,d AAOx3, CHAD, CNII-XII grossly intact. Motor 4-5/5 except Rt LE: HF 4-/5, KE 3/5, Foot DF,PF, EHL 4-/5 Sensory grossly intact to light touch, except Rt L3, L4(improved from preop as patient reports). Assessment: []66 yom POD#1 Rt L3-4 microdiscectomy. Plan: [] Monitor, VS, Neurochecks, Monitor wound, PT/OT, may need knee orthosis, consideration for Rehab, IS. Appreciate IM care. Discussed with patient and family regarding patient's condition and possible prolonged recovery. Sarah Munoz MD
[2017-09-03] MEDS: Atorvastatin* 80 MG TAB PO SCH (20:06)
[2017-09-04 05:33] LABS: ABS Basophils 0 10^3/ul (0-0.2); ABS Eosinophils 0 10^3/ul (0-0.6); ABS Monocytes 1.4 10^3/ul (0-0.8); ABS Neutrophils 8.7 10^3/ul (1.5-7.7); ABS Nucleated RBC 0 10^3/ul; Eosinophil % 0.1 % (0-6); Hematocrit 40 % (42-52); Hemoglobin 13.4 g/dl (14.0-18.0); Lymphocyte % 16.8 % (25-47); Mean Corpuscular HGB Conc 34 g/dl (31-36); Mean Corpuscular Hemoglobin 31 pg (27-31); Mean Corpuscular Volume 91 fL (80-94); Mean Platelet Volume 7.6 um3 (7.4-10.4); Nucleated Red Blood Cells % 0; Platelet Count 246 10^3/ul (150-450); Red Blood Count 4.34 10^6/ul (4.0-5.4); Red Cell Distribution Width 13 % (10.5-15); White Blood Count 12.2 10^3/ul (3.5-10.8)
--- NOTE | 2017-09-04 08:52 | PN ---
Subjective Date of Service: 09/04/17 Interval History: Mr. Edwards reports that he continues to improve slowly. He has no pain in his right leg and the numbness and tingling are improving. He is still not able to bear weight as his knee will buckle. He denies other complaint including chest pain, SOB, nausea, or abdominal pain. Family History: Unchanged from Admission Social History: Unchanged from Admission Past Medical History: Unchanged from Admission Objective Active Medications: Acetaminophen (Tylenol Tab*) 650 mg PO Q4H PRN Hydrocodone Bitart/Acetaminophen ([place] 5-325 Tab*) 1 tab PO Q4H PRN Atorvastatin Calcium (Lipitor*) 80 mg PO BEDTIME AMANDA Calcium Carbonate (Tums*) 500 mg PO Q4H PRN Cyclobenzaprine HCl (Flexeril Tab*) 10 mg PO TID PRN Ezetimibe (Zetia Tab*) 10 mg PO DAILY AMANDA Lisinopril (Prinivil Tab*) 2.5 mg PO BID AMANDA Morphine Sulfate (Morphine Inj (Syringe)*) 2 mg IV Q2H PRN Ondansetron HCl (Zofran Inj*) 4 mg IV Q6H PRN Prednisone (Deltasone Tab*) 40 mg PO DAILY AMANDA Sertraline HCl (Zoloft*) 25 mg PO BID AMANDA Vital Signs: Temp Pulse Resp BP Pulse Ox 98.7 F 79 16 101/62 96 09/04/17 03:15 09/04/17 03:15 09/04/17 03:15 09/04/17 03:15 09/04/17 03:15 Oxygen Devices in Use Now: None Appearance: Patient sitting up in chair in NAD Eyes: No Scleral Icterus Ears/Nose/Mouth/Throat: Mucous Membranes Moist Neck: Trachea Midline Respiratory: Symmetrical Chest Expansion and Respiratory Effort, Clear to Auscultation Cardiovascular: NL Sounds; No Murmurs; No JVD, No Edema Lymphatic: No Cervical Adenopathy Extremities: No Edema Skin: No Rash or Ulcers Neurological: Alert and Oriented x 3, - - 5/5 strength throughout except R LE which is approx 4/5 Result Diagrams: 09/04/17 05:04 09/03/17 04:53 Assess/Plan/Problems-Billing Assessment: Mr. Edwards is a 66yo male with a PMH for [place], HLD, Cauda Equina syndrome who presents with worsening back and leg pain, with herniated discs on MRI who had surgery on 09/02 and is improving with persistent weakness. - Patient Problems (1) Spinal stenosis Comment: - Pain resolved, numbness and weakness slowly improving. Unable to bear weight. - s/p discectomy on 09/02/17. - Continue Prednisone and pain control. - Appreciate neurosurgical consultation. (2) Coronary arteriosclerosis in patient with history of previous myocardial infarction Comment: - Asymptomatic. - [place] in 2003 with Cath without stenting. Follows with cardiology outpatient with yearly stress tests. No inducible ischemia on stress test from 08/2016. Abnormal R wave progression across the precordium. No other ischemic changes. (3) Hyperlipidemia Comment: - Continue Lipitor and Zetia (4) DVT prophylaxis Comment: - Heparin after surgery when cleared by neurosurgery. SCDs. (5) Full code status Comment: Status and Disposition: Patient is admitted inpatient. Discharge when medically stable. May need rehab.
[2017-09-04] MEDS: Ezetimibe TAB* 10 MG PO SCH (09:13)
[2017-09-04] MEDS: Sertraline* 25 MG TAB PO SCH ×2 (09:13→20:31)
[2017-09-04] MEDS: Lisinopril TAB* 5 MG PO SCH ×2 (09:13→20:31)
[2017-09-04] MEDS: predniSONE TAB* 20 MG PO SCH (09:13)
--- NOTE | 2017-09-04 18:07 | PN ---
Progress Note - Progress Note Date of Service: 09/04/17 SOAP: Subjective: [] Patient seen earlier today.No events ON. Voids, Tolerates PO well. Resolved RLE pain and muscle spasms. Numbness improved. Able to ambulate with walker. Feels that his RLE strength is improving. Objective: []VSS, Afebrile, Wound s,c,d AAOx3, CHAD, CNII-XII grossly intact. Motor 4-5/5 except Rt LE: HF 4-/5, KE 3/5, Foot DF,PF, EHL 4-/5 Sensory grossly intact to light touch, except Rt L3, L4(improved from preop). Assessment: []]66 yom POD#2 Rt L3-4 microdiscectomy. Plan: []Monitor, VS, Neurochecks, Monitor wound, PT/OT, may need knee orthosis, consideration for Rehab, IS. May start sq heparin from NS standpoint. Appreciate IM care. DC planning. Sarah Munoz MD
[2017-09-04] MEDS: Atorvastatin* 80 MG TAB PO SCH (20:31)
[2017-09-05 07:32] VITALS: BP 128/89
--- NOTE | 2017-09-05 08:17 | PN ---
Subjective Date of Service: 09/05/17 Interval History: Mr. Edwards reports doing well and is excited about the prospect of going to [facility] this morning. He denies any new complaint. Family History: Unchanged from Admission Social History: Unchanged from Admission Past Medical History: Unchanged from Admission Objective Active Medications: Acetaminophen (Tylenol Tab*) 650 mg PO Q4H PRN Hydrocodone Bitart/Acetaminophen ([place] 5-325 Tab*) 1 tab PO Q4H PRN Atorvastatin Calcium (Lipitor*) 80 mg PO BEDTIME AMANDA Calcium Carbonate (Tums*) 500 mg PO Q4H PRN Cyclobenzaprine HCl (Flexeril Tab*) 10 mg PO TID PRN Ezetimibe (Zetia Tab*) 10 mg PO DAILY AMANDA Lisinopril (Prinivil Tab*) 2.5 mg PO BID AMANDA Morphine Sulfate (Morphine Inj (Syringe)*) 2 mg IV Q2H PRN Ondansetron HCl (Zofran Inj*) 4 mg IV Q6H PRN Prednisone (Deltasone Tab*) 40 mg PO DAILY AMANDA Sertraline HCl (Zoloft*) 25 mg PO BID AMANDA Vital Signs: Temp Pulse Resp BP Pulse Ox 98.8 F 73 18 128/89 97 09/05/17 07:17 09/05/17 07:17 09/05/17 07:28 09/05/17 07:17 09/05/17 07:17 Oxygen Devices in Use Now: None Appearance: Male sitting up in bed in NAD Eyes: No Scleral Icterus Ears/Nose/Mouth/Throat: Mucous Membranes Moist Neck: Trachea Midline Respiratory: Symmetrical Chest Expansion and Respiratory Effort, Clear to Auscultation Cardiovascular: NL Sounds; No Murmurs; No JVD, No Edema Abdominal: NL Sounds; No Tenderness; No Distention Lymphatic: No Cervical Adenopathy Extremities: No Edema Skin: No Rash or Ulcers Neurological: Alert and Oriented x 3, - - +5 throuhgout except R LE which is +4- 5 Result Diagrams: 09/04/17 05:04 09/03/17 04:53 Assess/Plan/Problems-Billing Assessment: Mr. Edwards is a 66yo male with a PMH for [place], HLD, Cauda Equina syndrome who presents with worsening back and leg pain, with herniated discs on MRI who had surgery on 09/02 and is improving with persistent weakness. - Patient Problems (1) Spinal stenosis Comment: - Pain resolved, numbness and weakness slowly improving. Unable to bear weight. - s/p discectomy on 09/02/17. - Continue Prednisone and pain control. - Appreciate neurosurgical consultation. (2) Coronary arteriosclerosis in patient with history of previous myocardial infarction Comment: - Asymptomatic. - [place] in 2003 with Cath without stenting. Follows with cardiology outpatient with yearly stress tests. No inducible ischemia on stress test from 08/2016. Abnormal R wave progression across the precordium. No other ischemic changes. (3) Hyperlipidemia Comment: - Continue Lipitor and Zetia (4) DVT prophylaxis Comment: - Heparin after surgery when cleared by neurosurgery. SCDs. (5) Full code status Comment: Status and Disposition: Discharge to [facility].
[2017-09-05] MEDS: Ezetimibe TAB* 10 MG PO SCH (08:19)
[2017-09-05] MEDS: Sertraline* 25 MG TAB PO SCH (08:19)
[2017-09-05] MEDS: predniSONE TAB* 20 MG PO SCH (08:20)
[2017-09-05] MEDS: Lisinopril TAB* 5 MG PO SCH (08:20)
--- NOTE | 2017-09-05 12:38 | DS ---
CC: Dr. Henley * DISCHARGE SUMMARY: DATE OF ADMISSION: 09/01/17 DATE OF DISCHARGE: 09/05/17 PRIMARY CARE PROVIDER: Dr. Henley. ATTENDING PHYSICIAN: Juan Antonio Conte MD * (dictation provided by Flory Street NP). PRIMARY DIAGNOSES: Status post right L3-L4 microdiskectomy with fragmentectomy and extended foraminotomies L3 and L4. SECONDARY DIAGNOSES: 1. History of coronary artery disease with myocardial infarction in 2003. 2. Left foot fracture. 3. Seasonal allergies. 4. Hypertension. 5. Hyperlipidemia. 6. Anxiety. PAST SURGICAL HISTORY: 1. History of tonsillectomy. 2. Carpal tunnel. 3. History of back surgery for lumbar spine surgery in March 2017. 4. History of cyst removed from his right neck. MEDICATIONS AT THE TIME OF DISCHARGE: 1. Sertraline 25 mg p.o. b.i.d. 2. Ibuprofen 200 mg p.o. q.6 hours p.r.n. 3. Folic acid 1 mg p.o. daily. 4. Aspirin 81 mg p.o. daily. 5. Multivitamin with mineral 1 tab p.o. daily. 6. Lisinopril 2.5 mg p.o. b.i.d. 7. Zetia 10 mg p.o. daily. 8. Atorvastatin 80 mg p.o. at bedtime. HOSPITAL COURSE: Mr. Edwards is a 66-year-old male with past medical history as outlined above who presented to the hospital on 09/01/17 with concern for back pain. Please see the dictated H and P from Mayo Borges NP, for complete details. In brief, the patient states he had had a surgery with Dr. Mercado in March 2017 on the lumbar spine. He reported doing well after that until the morning of admission when he suddenly had worsening back pain. He does not remember any precipitating factors that aggravated his pain, and the pain continued to worsen and radiate down into his right leg and he ultimately came to the emergency room for evaluation in the emergency room. He had a lumbar spine CT that showed "no fracture of the lumbar spine is noted. There is grade 1 spondylolisthesis of L5 on S1 with spondylosis of the pars interarticularis at L5 on the right. Calcified posterior longitudinal ligament is noted at L4- L5. There is suggestion of right paracentral disk extrusion which may impinge upon the right exiting nerve root at L4 on the right. This disk appears to be migrating from the L3-L4 disk space. At L3-L4, broad-based protrusion may narrow the intervertebral foramen bilaterally. Additionally there is a soft tissue presumed extrusion migrating inferiorly impinging upon the right lateral recess and right descending L4 nerve root. At L2-L3, broad-based protrusion flattens the thecal sac and L1-L2 vacuum disk phenomenon with left paracentral disk protrusion indenting the thecal sac." The patient had a lumbar spine MRI which showed "spondylolisthesis, degenerative disk disease and osteoarthritis. There is a large right-sided inferior disk extrusion at L3-L4 with mass effect upon the descending nerve roots. There is a left-sided inferior disk extrusion at L1-L2 encroaching upon the descending nerve roots. There is a small central disk fusion at T12-L1. There is a small central disk protrusion at L4-5. There is multilevel neuroforaminal narrowing as described above. There is mild narrowing of the central canal at L3- L4. There has been progression of disease compared to 12/06/16." For this, the patient was seen in consultation by Dr. Munoz from Neurosurgery. He made note of the findings and, based on that and the patient's physical exam, recommended an L3-L4 diskectomy with fragmentectomy. The patient opted to follow with Dr. Munoz for this surgical intervention and went to the OR on 09/02/17. I refer you to the operative note from Dr. Munoz for full details, but the patient did undergo a right L3-L4 microdiskectomy with fragmentectomy and extended foraminotomies L3-L4. Mr. Edwards has been doing well after surgery. He continues to work with physical therapy. He has as of this morning noted no pain in his right leg; however, he continues to have weakness and decreased sensation on the right leg and is unable to bear weight due to the weakness. Plans are for him to be transferred to the [facility] at [facility] for ongoing rehabilitation. He has been accepted there today. DISPOSITION: To [facility]. DIET: Low fat, low salt. ACTIVITIES: As tolerated. FOLLOWUP PLAN: Please follow up with Dr. Henley at the time of discharge regarding this acute hospitalization. TIME SPENT: Approximately 60 minutes was spent on the discharge of this patient , more than half the time was spent with patient at the bedside reviewing the events leading up to this hospitalization, performing physical examination, reviewing my plan of care. FLORY STREET NP [id number]/[facility] #: [id number] CAREN
== END 2017-09-05 09:50 | DRG 310 ==
LOC: ED 11:37 → MED 19:19 → OBSVTOIN 09-02 08:33 → INTOOBSV 09-02 08:33 → SSU 09-02 20:45
PROVIDERS: ADMIT Pediatrics; ATTEND Internal Medicine
PROC: 01NB0ZZ Release Lumbar Nerve, Open Approach (ICD-10-PCS; 2017-09-02)
PROC: 0ST20ZZ Resection of Lumbar Vertebral Disc, Open Approach (ICD-10-PCS; 2017-09-02)
PROC: 0ST20ZZ Resection of Lumbar Vertebral Disc, Open Approach (ICD-10-PCS; principal; 2017-09-02 13:59)
DX: M51.26 Other intervertebral disc displacement, lumbar region (principal); G83.4 Cauda equina syndrome; I11.9 Hypertensive heart disease without heart failure; G95.9 Disease of spinal cord, unspecified; M48.061 Spinal stenosis, lumbar region without neurogenic claudication; I25.10 Atherosclerotic heart disease of native coronary artery without angina pectoris; Z98.61 Coronary angioplasty status; E78.5 Hyperlipidemia, unspecified; M51.16 Intervertebral disc disorders with radiculopathy, lumbar region; M47.9 Spondylosis, unspecified; F41.9 Anxiety disorder, unspecified; J30.2 Other seasonal allergic rhinitis; I25.2 Old myocardial infarction; Z82.49 Family history of ischemic heart disease and other diseases of the circulatory system; Z80.42 Family history of malignant neoplasm of prostate; Z82.5 Family history of asthma and other chronic lower respiratory diseases; Z79.1 Long term (current) use of non-steroidal anti-inflammatories (NSAID); Z79.82 Long term (current) use of aspirin; Z79.899 Other long term (current) drug therapy; Z87.891 Personal history of nicotine dependence
CPT/HCPCS: 36415; 71045; 72131; 72158; 76001; 80048; 80053; 81003; 83735; 85025; 85027; 85610; 85730; 86850; 86900; 86901; 93005; 99284; A9270-GY; A9579; G8987-GO-CL; G8988-GO-CI; J0690; J1100; J1170; J2001; J2250; J2405; J2704; J2710; J3010; J7512

== ENCOUNTER 2017-09-05 07:18 | Inpatient (IN) | payer BC ==
[2017-09-05] MEDS ORDERED: Magnesium Hydroxide LIQ* 30 ML UDC PO PRN (11:30)
[2017-09-05] MEDS ORDERED: Senna TAB PO PRN (11:30)
[2017-09-05] MEDS ORDERED: Bisacodyl SUPP* 10 MG SUPP PR PRN (11:30)
[2017-09-05] MEDS ORDERED: Acetaminophen TAB* 325 MG PO PRN (11:30)
--- NOTE | 2017-09-05 12:41 | PMRUTEAM ---
PMRU: Team Meeting Current Status: Nursing: Current Status Skin Deviations [Lower Back] Incision Physical Therapy: Current Status Bed Mobility Assistance Supervision Transfer Moblility Assistance Min Assist Ambulation Assistance Min Assist 80' Ambulation Assistive Devices Rolling Walker Occupational Therapy: Current Status Upper Body Dressing Supervision Lower Body Dressing Mod Assist Bathing Min Assist Toileting Contact Guard Assist Eating Independent Social Work: Current Status Discharge Plan return home with home care svs and family support Potential for Family Training pt's partner is involved and supportive Anticipated Discharge Home Destination Discharge With home care svs and family support Goals: Occupational Therapy: Initial Goals Goals to be Completed in (Days 5-10 ) Upper Body Bathing Routine Independent,Modified Independent with Lower Body Bathing Routine Modified Independent with Upper Body Dressing Routine Independent Lower Body Dressing Routine Modified Independent with Toilet Hygeine and Clothing Modified Independent with Management Routine Toilet Transfer Routine Modified Independent with Step-In Shower Transfer Modified Independent with Routine Functional Transfers for ADL Modified Independent with Grooming Routine Independent Feeding Routine Independent Light Housekeeping Tasks Minimal Contact Assist Social Work: Goals Discharge Plan return home with home care svs and family support Potential for Family Training pt's partner is involved and supportive Anticipated Discharge Home Destination Discharge With home care svs and family support Care Plan: Care Plan ADL's - Improve/Maintain Start: 09/05/17 11:49 Freq: DAILY Status: Active Target: Protocol: Activity Type Activity Date Activity User E-Sign Co-Sign Detail Recorded Client Recorded Date Recorded By Document 09/05/17 11:50 [id number] 09/05/17 11:51 [id number] 09/05/17 11:50 [facility] Outcome: ADL's/ADL Transfers Orders/Interventions Occupational Therapy Evaluation & Treatment Communication Tool in Patient Room Device Yes Address Deficits Secondary To: s/p L3-L4 microdiskectomy with fragmentectomy Patient to receive OT 5x/wk for 60-120 Therex min/day Self Care Management Group Therapy UE/LE ADL's with Assist Yes: Joelle ADL Transfers with Assist Yes: Joelle Toileting: Transfers,Clothing Management Yes: Joelle ,Hygeine w/Assist Light Kitchen/Laundry w/Assist Yes: Rima Progression Toward Outcome/Goals Progressing Outcome/Goals Met Pt participated well in ADL evaluation, no c/o pain throughout, slight difficulty with reaching feet, although pt slightly resistant to use of AE for dressing. Pt will benefit from skilled OT intervention including AE training to maximize independence and safety. Medicine Note: Length of Stay: 8 days Anticipated Discharge Destination: Home Tentative Discharge Date: September 13 2017 Discharged to: Home
[2017-09-05] MEDS ORDERED: HYDROcodone/ACETAMIN 5-325 MG* 1 TAB PO PRN (13:24)
[2017-09-05] MEDS ORDERED: Cyclobenzaprine TAB* 10 MG PO PRN (13:32)
[2017-09-05] MEDS: Sertraline* 25 MG TAB PO SCH (20:50)
[2017-09-05] MEDS: Atorvastatin* 80 MG TAB PO SCH (20:50)
[2017-09-05] MEDS: Lisinopril TAB* 5 MG PO SCH (20:50)
[2017-09-05] MEDS: Docusate CAP* 100 MG PO SCH (20:51)
--- NOTE | 2017-09-05 21:57 | HP ---
HISTORY AND PHYSICAL: DATE OF ADMISSION: 09/05/17 REASON FOR ADMISSION: Lumbar disk herniation with extruded fragment and L4 radiculopathy with right leg weakness. HISTORY OF PRESENT ILLNESS: Wili Edwards is a 66-year-old male. According to the patient, in November 2015 while walking his dog, the patient developed a sudden onset of bilateral leg numbness with loss of bowel and bladder control. The patient eventually had an MRI of his lumbar spine. His symptoms improved although he still had difficulties with pain. He saw Dr. Stephenson at [facility]. He had epidural steroid injections, which improved his situation, but he was still left with significant pain. He went to see Dr. De La Garza at [facility]. He underwent an L3-4 diskectomy in March [address] De La Garza. His pain was relieved after that and he seemed to return to normal. According to the patient on the morning of 09/01/17, he woke up and had significant pain in his back. He tried to go to work, but the pain in his back and right leg became severe. He had a friend drive him to the emergency room at [facility]. He was evaluated in the emergency room. While in the emergency room, his right leg was becoming progressively weak. He went to stand up and his knee buckled and he could not get up on his own. He was admitted to [facility]. He had a lumbar spine MRI done on 09/01/17. The MRI showed a broad based disk bulge at L3-4 with a disk extrusion to the right at L3-4 measuring 1.2 cm in depth and 1.7 cm in cranial caudal dimension. This was new from the prior exam. It was displacing the nerve root on the right side. He was seen and evaluated by Dr. Munoz who felt that the patient needed surgical decompression. The patient agreed and was taken to the operating room on 09/02/17. He underwent a L3-4 microdiskectomy and fragmentectomy with extended foraminotomies at L3 and L4. After the surgery, the patient had some improvement in his quadriceps strength on the right side, but still had significant weakness. He is felt to have physical therapy and occupational therapy needs. He is now being admitted for inpatient rehab, so he might return to independent living. PAST MEDICAL HISTORY: Significant for the aforementioned back problems. In addition, he has a history of coronary artery disease. He had a small myocardial infarct in 2003. CURRENT MEDICATIONS: Include: 1. Lipitor. 2. He is on Flexeril. 3. Zetia. 4. Lisinopril. 5. Prednisone. 6. Zoloft. 7. His aspirin is currently being held until he is 1 week post surgery or until 09/09/17. ALLERGIES: No known drug allergies. SOCIAL HISTORY: He is a nonsmoker, nondrinker and lives by himself in an apartment. He does have a girlfriend, who will be staying with him in the first few days after discharge. REVIEW OF SYSTEMS: The patient reports no current shortness of breath or chest pain. PHYSICAL EXAMINATION VITAL SIGNS: The patient's temperature is 98.6, blood pressure is 130/79, pulse 104, respirations 18. HEENT: His extraocular movements are intact. Tongue is midline. NECK: Supple with no lymphadenopathy. LUNGS: Sounds clear to auscultation bilaterally. HEART: Regular. S1, S2 are audible. ABDOMEN: Soft and nontender. EXTREMITIES: He had some atrophy noted in his right leg compared to the left particularly the calf muscles. NEUROLOGIC: His neurologic sensation was slightly diminished on the right hinojosa on the medial side. Deep tendon reflexes were 2+ and symmetric in the biceps, triceps, brachioradialis and ankle jerks. I was unable to elicit a right ankle jerk reflex. Muscle strength in his right quadriceps appeared to be 3/5. Hip flexors appear to be about 3+ to 4/5. Otherwise 5/5. FUNCTIONAL EXAM: The patient transfers with contact guard to min assist. ASSESSMENT: Right L4 radiculopathy with right quadriceps weakness. PLAN: 1. Physical Therapy will see the patient, work on functional transfer training and ambulation training with a walker. We will consider if he will need a right knee brace. 2. Occupational Therapy will see the patient, work on his activities of daily living including toileting and toilet transfers. 3. DA stockings for DVT prophylaxis. 4. For his coronary artery disease, we are going to continue his LEE inhibitor as well as his Lipitor. We will resume his aspirin on 09/09/17. 5. Prednisone taper. We are going to begin to taper his prednisone. He will have 40 mg tomorrow and 09/07/17 and then we will begin to taper him off over the next 2 weeks. 6. Adequate analgesia. 7. His bowels will be regulated. 8. Continue Flexeril for muscle spasms. 9. outpatient services director will be closely involved to make sure that any services or equipment the patient requires are in place prior to discharge. 10. Family training is appropriate. 11. Home with appropriate services. ESTIMATED LENGTH OF STAY: 8 days. [id number]/[facility] #: [id number] CAREN
[2017-09-06 06:56] LABS: ABS Basophils 0.1 10^3/ul (0-0.2); ABS Eosinophils 0.1 10^3/ul (0-0.6); ABS Lymphocytes 2.8 10^3/ul (1.0-4.8); ABS Monocytes 1.3 10^3/ul (0-0.8); ABS Neutrophils 7.9 10^3/ul (1.5-7.7); ABS Nucleated RBC 0 10^3/ul; Eosinophil % 0.6 % (0-6); Hematocrit 39 % (42-52); Hemoglobin 13.4 g/dl (14.0-18.0); Lymphocyte % 22.8 % (25-47); Mean Corpuscular HGB Conc 35 g/dl (31-36); Mean Corpuscular Hemoglobin 31 pg (27-31); Mean Corpuscular Volume 90 fL (80-94); Mean Platelet Volume 7.6 um3 (7.4-10.4); Nucleated Red Blood Cells % 0; Platelet Count 263 10^3/ul (150-450); Red Blood Count 4.32 10^6/ul (4.0-5.4); Red Cell Distribution Width 14 % (10.5-15); White Blood Count 12.1 10^3/ul (3.5-10.8)
[2017-09-06 07:50] LABS: EGFR Non-African American 113.5 (>60)
[2017-09-06] MEDS: Docusate CAP* 100 MG PO SCH ×2 (10:14→21:49)
[2017-09-06] MEDS: Lisinopril TAB* 5 MG PO SCH ×2 (10:14→21:47)
[2017-09-06] MEDS: Ezetimibe TAB* 10 MG PO SCH (10:14)
[2017-09-06] MEDS: Sertraline* 25 MG TAB PO SCH ×2 (10:16→21:49)
[2017-09-06] MEDS: predniSONE TAB* 20 MG PO SCH (10:16)
--- NOTE | 2017-09-06 19:41 | PN ---
Progress Note Date of Service: 09/06/17 Note: DYLAN FONG was visited. Therapy notes read and reviewed. He did pretty well with therapy but took a quick turn and his right knee buckled. No injury. He has no pain. Discussed with Dr. Munoz and patient may shower Current Medications: Active Medications Generic Name Dose Route Start Last Admin Trade Name Freq PRN Reason Stop Dose Admin Acetaminophen 650 mg 09/05/17 11:30 Tylenol Tab* PO Q6H PRN FEVER/PAIN Hydrocodone Bitart/Acetaminophen 1 tab 09/05/17 13:24 [place] 5-325 Tab* PO Q4H PRN PAIN - MODERATE TO SEVERE Atorvastatin Calcium 80 mg 09/05/17 21:00 09/05/17 20:50 Lipitor* PO 80 mg 2100 AMANDA Administration Bisacodyl 10 mg 09/05/17 11:30 Dulcolax Supp* MT DAILY PRN CONSTIPATION Cyclobenzaprine HCl 10 mg 09/05/17 13:32 Flexeril Tab* PO BID PRN SPASMS Docusate Sodium 100 mg 09/05/17 21:00 09/06/17 10:14 Colace Cap* PO 100 mg BID AMANDA Administration Ezetimibe 10 mg 09/06/17 09:00 09/06/17 10:14 Zetia Tab* PO 10 mg DAILY AMANDA Administration Lisinopril 2.5 mg 09/05/17 21:00 09/06/17 10:14 Prinivil Tab* PO 2.5 mg BID AMANDA Administration Magnesium Hydroxide 30 ml 09/05/17 11:30 Milk Of Magnesia Liq* PO Q6H PRN CONSTIPATION Prednisone 40 mg 09/06/17 09:00 09/06/17 10:16 Deltasone Tab* PO 09/07/17 23:59 40 mg DAILY AMANDA Administration Prednisone 30 mg 09/08/17 09:00 Deltasone Tab* PO 09/10/17 23:59 DAILY AMANDA Prednisone 20 mg 09/11/17 09:00 Deltasone Tab* PO 09/13/17 23:55 DAILY AMANDA Prednisone 10 mg 09/14/17 09:00 Deltasone Tab* PO 09/16/17 23:55 DAILY AMANDA Senna 2 tab 09/05/17 11:30 Senokot Tab* PO BEDTIME PRN CONSTIPATION Sertraline HCl 25 mg 09/05/17 21:00 09/06/17 10:16 Zoloft* PO 25 mg BID AMANDA Administration Vital Signs: Vital Signs Temp Pulse Resp BP Pulse Ox 98.7 F 108 18 117/66 96 09/06/17 17:42 09/06/17 17:42 09/06/17 17:50 09/06/17 17:42 09/06/17 17:51 Lab Results: Laboratory Results - last 24 hr 09/06/17 09/06/17 06:38 06:38 WBC 12.1 H RBC 4.32 Hgb 13.4 L Hct 39 L MCV 90 MCH 31 MCHC 35 RDW 14 Plt Count 263 MPV 7.6 Neut % (Auto) 65.0 Lymph % (Auto) 22.8 L [place] % (Auto) 10.9 H Eos % (Auto) 0.6 Baso % (Auto) 0.7 Absolute Neuts (auto) 7.9 H Absolute Lymphs (auto) 2.8 Absolute Monos (auto) 1.3 H Absolute Eos (auto) 0.1 Absolute Basos (auto) 0.1 Absolute Nucleated RBC 0 Nucleated RBC % 0 Sodium 136 L Potassium 3.6 Chloride 99 L Carbon Dioxide 28 Anion Gap 9 BUN 18 Creatinine 0.70 Est GFR ( Amer) 146.0 Est GFR (Non-Af Amer) 113.5 BUN/Creatinine Ratio 25.7 H Glucose 102 H Calcium 8.7 Total Bilirubin 0.90 AST 19 ALT 27 Alkaline Phosphatase 41 Total Protein 6.2 L Albumin 3.5 Globulin 2.7 Albumin/Globulin Ratio 1.3 Exam: LUNGS: clear bilaterally HEART: Reg rhythm ABDOMEN: Soft BACK: Wound clean NEUROLOGIC: right leg quads at least 3/5 Assessment/Plan: 1. Right L4 Radiculopathy with quadriceps weakness: PT/OT. Prednisone taper 2. Coronary artery disease: Lipitor/Zetia/Lisinopril. ASA to resume 09/09 3. DVT prophylaxis: TEDS 4. Analgesia: Hydrocodone/Flexeril 09/06/17 19:41 09/06/17 19:42
[2017-09-06] MEDS: Atorvastatin* 80 MG TAB PO SCH (21:49)
[2017-09-07] MEDS: Sertraline* 25 MG TAB PO SCH ×2 (07:45→20:15)
[2017-09-07] MEDS: predniSONE TAB* 20 MG PO SCH (07:45)
[2017-09-07] MEDS: Lisinopril TAB* 5 MG PO SCH ×2 (07:45→20:15)
[2017-09-07] MEDS: Ezetimibe TAB* 10 MG PO SCH (07:46)
[2017-09-07] MEDS: Docusate CAP* 100 MG PO SCH ×2 (07:50→20:18)
--- NOTE | 2017-09-07 16:29 | PN ---
Progress Note Date of Service: 09/07/17 Note: DYLAN FONG was visited. Therapy notes read and reviewed. He ambulated with and without knee immobilizer today. He did well. Had a shower today. Current Medications: Active Medications Generic Name Dose Route Start Last Admin Trade Name Freq PRN Reason Stop Dose Admin Acetaminophen 650 mg 09/05/17 11:30 Tylenol Tab* PO Q6H PRN FEVER/PAIN Hydrocodone Bitart/Acetaminophen 1 tab 09/05/17 13:24 [place] 5-325 Tab* PO Q4H PRN PAIN - MODERATE TO SEVERE Atorvastatin Calcium 80 mg 09/05/17 21:00 09/06/17 21:49 Lipitor* PO 80 mg 2100 AMANDA Administration Bisacodyl 10 mg 09/05/17 11:30 Dulcolax Supp* [place] DAILY PRN CONSTIPATION Cyclobenzaprine HCl 10 mg 09/05/17 13:32 Flexeril Tab* PO BID PRN SPASMS Docusate Sodium 100 mg 09/05/17 21:00 09/07/17 07:50 Colace Cap* PO Not Given BID AMANDA Ezetimibe 10 mg 09/06/17 09:00 09/07/17 07:46 Zetia Tab* PO 10 mg DAILY AMANDA Administration Lisinopril 2.5 mg 09/05/17 21:00 09/07/17 07:45 Prinivil Tab* PO 2.5 mg BID AMANDA Administration Magnesium Hydroxide 30 ml 09/05/17 11:30 Milk Of Magnesia Liq* PO Q6H PRN CONSTIPATION Prednisone 40 mg 09/06/17 09:00 09/07/17 07:45 Deltasone Tab* PO 09/07/17 23:59 40 mg DAILY AMANDA Administration Prednisone 30 mg 09/08/17 09:00 Deltasone Tab* PO 09/10/17 23:59 DAILY AMANDA Prednisone 20 mg 09/11/17 09:00 Deltasone Tab* PO 09/13/17 23:55 DAILY AMANDA Prednisone 10 mg 09/14/17 09:00 Deltasone Tab* PO 09/16/17 23:55 DAILY AMANDA Senna 2 tab 09/05/17 11:30 Senokot Tab* PO BEDTIME PRN CONSTIPATION Sertraline HCl 25 mg 09/05/17 21:00 09/07/17 07:45 Zoloft* PO 25 mg BID AMANDA Administration Vital Signs: Vital Signs Temp Pulse Resp BP Pulse Ox 100.5 F 78 18 108/63 96 09/07/17 05:22 09/07/17 05:22 09/07/17 16:00 09/07/17 05:22 09/07/17 05:22 Exam: LUNGS: clear bilaterally HEART: Reg rhythm ABDOMEN: Soft BACK: Wound clean NEUROLOGIC: right leg quads 2-3/5 Assessment/Plan: 1. Right L4 Radiculopathy with quadriceps weakness: PT/OT. Prednisone taper 2. Coronary artery disease: Lipitor/Zetia/Lisinopril. ASA to resume 09/09 3. DVT prophylaxis: TEDS 4. Analgesia: Hydrocodone/Flexeril 09/07/17 16:29
[2017-09-07] MEDS: Atorvastatin* 80 MG TAB PO SCH (20:15)
[2017-09-08] MEDS: predniSONE TAB* 10 MG PO SCH (08:51)
[2017-09-08] MEDS: Ezetimibe TAB* 10 MG PO SCH (08:51)
[2017-09-08] MEDS: Sertraline* 25 MG TAB PO SCH ×2 (08:51→20:07)
[2017-09-08] MEDS: Lisinopril TAB* 5 MG PO SCH ×2 (08:52→20:07)
[2017-09-08] MEDS: Docusate CAP* 100 MG PO SCH ×2 (08:54→20:08)
[2017-09-08] MEDS: Atorvastatin* 80 MG TAB PO SCH (20:07)
--- NOTE | 2017-09-08 20:56 | PN ---
Progress Note Date of Service: 09/08/17 Note: DYLAN FONG was visited. Therapy notes read and reviewed. He is still weak in his right leg. He thinks sensation is better. Current Medications: Active Medications Generic Name Dose Route Start Last Admin Trade Name Freq PRN Reason Stop Dose Admin Acetaminophen 650 mg 09/05/17 11:30 Tylenol Tab* PO Q6H PRN FEVER/PAIN Hydrocodone Bitart/Acetaminophen 1 tab 09/05/17 13:24 [place] 5-325 Tab* PO Q4H PRN PAIN - MODERATE TO SEVERE Atorvastatin Calcium 80 mg 09/05/17 21:00 09/08/17 20:07 Lipitor* PO 80 mg 2100 AMANDA Administration Bisacodyl 10 mg 09/05/17 11:30 Dulcolax Supp* [place] DAILY PRN CONSTIPATION Cyclobenzaprine HCl 10 mg 09/05/17 13:32 Flexeril Tab* PO BID PRN SPASMS Docusate Sodium 100 mg 09/05/17 21:00 09/08/17 20:08 Colace Cap* PO Not Given BID AMANDA Ezetimibe 10 mg 09/06/17 09:00 09/08/17 08:51 Zetia Tab* PO 10 mg DAILY AMANDA Administration Lisinopril 2.5 mg 09/05/17 21:00 09/08/17 20:07 Prinivil Tab* PO 2.5 mg BID AMANDA Administration Magnesium Hydroxide 30 ml 09/05/17 11:30 Milk Of Magnesia Liq* PO Q6H PRN CONSTIPATION Prednisone 30 mg 09/08/17 09:00 09/08/17 08:51 Deltasone Tab* PO 09/10/17 23:59 30 mg DAILY AMANDA Administration Prednisone 20 mg 09/11/17 09:00 Deltasone Tab* PO 09/13/17 23:55 DAILY AMANDA Prednisone 10 mg 09/14/17 09:00 Deltasone Tab* PO 09/16/17 23:55 DAILY AMANDA Senna 2 tab 09/05/17 11:30 Senokot Tab* PO BEDTIME PRN CONSTIPATION Sertraline HCl 25 mg 09/05/17 21:00 09/08/17 20:07 Zoloft* PO 25 mg BID AMANDA Administration Vital Signs: Vital Signs Temp Pulse Resp BP Pulse Ox 99.0 F 97 20 133/70 97 09/08/17 16:39 09/08/17 16:39 09/08/17 16:39 09/08/17 16:39 09/08/17 16:39 Exam: LUNGS: clear bilaterally HEART: Reg rhythm ABDOMEN: Soft BACK: Wound clean NEUROLOGIC: right leg quads 2-3/5 Assessment/Plan: 1. Right L4 Radiculopathy with quadriceps weakness: PT/OT. Prednisone taper 2. Coronary artery disease: Lipitor/Zetia/Lisinopril. ASA to resume tomorrow 3. DVT prophylaxis: TEDS 4. Analgesia: Hydrocodone/Flexeril 09/08/17 20:56
[2017-09-09] MEDS: predniSONE TAB* 10 MG PO SCH (08:11)
[2017-09-09] MEDS: Sertraline* 25 MG TAB PO SCH ×2 (08:12→22:09)
[2017-09-09] MEDS: Ezetimibe TAB* 10 MG PO SCH (08:12)
[2017-09-09] MEDS: Aspirin EC TAB* 81 MG TAB.EC PO SCH (08:12)
[2017-09-09] MEDS: Lisinopril TAB* 5 MG PO SCH ×2 (08:12→22:09)
[2017-09-09] MEDS: Docusate CAP* 100 MG PO SCH ×2 (08:13→22:10)
--- NOTE | 2017-09-09 11:44 | PN ---
Progress Note Date of Service: 09/09/17 Note: DYLAN FONG was visited. Therapy notes read and reviewed. restarted ASA this am. Otherwise no complaints. Current Medications: Active Medications Generic Name Dose Route Start Last Admin Trade Name Freq PRN Reason Stop Dose Admin Acetaminophen 650 mg 09/05/17 11:30 Tylenol Tab* PO Q6H PRN FEVER/PAIN Hydrocodone Bitart/Acetaminophen 1 tab 09/05/17 13:24 [place] 5-325 Tab* PO Q4H PRN PAIN - MODERATE TO SEVERE Aspirin 81 mg 09/09/17 09:00 09/09/17 08:12 Aspirin Ec Tab* PO 81 mg DAILY AMANDA Administration Atorvastatin Calcium 80 mg 09/05/17 21:00 09/08/17 20:07 Lipitor* PO 80 mg 2100 AMANDA Administration Bisacodyl 10 mg 09/05/17 11:30 Dulcolax Supp* [place] DAILY PRN CONSTIPATION Cyclobenzaprine HCl 10 mg 09/05/17 13:32 Flexeril Tab* PO BID PRN SPASMS Docusate Sodium 100 mg 09/05/17 21:00 09/09/17 08:13 Colace Cap* PO Not Given BID AMANDA Ezetimibe 10 mg 09/06/17 09:00 09/09/17 08:12 Zetia Tab* PO 10 mg DAILY AMANDA Administration Lisinopril 2.5 mg 09/05/17 21:00 09/09/17 08:12 Prinivil Tab* PO 2.5 mg BID AMANDA Administration Magnesium Hydroxide 30 ml 09/05/17 11:30 Milk Of Magnesia Liq* PO Q6H PRN CONSTIPATION Prednisone 30 mg 09/08/17 09:00 09/09/17 08:11 Deltasone Tab* PO 09/10/17 23:59 30 mg DAILY AMANDA Administration Prednisone 20 mg 09/11/17 09:00 Deltasone Tab* PO 09/13/17 23:55 DAILY AMANDA Prednisone 10 mg 09/14/17 09:00 Deltasone Tab* PO 09/16/17 23:55 DAILY AMANDA Senna 2 tab 09/05/17 11:30 Senokot Tab* PO BEDTIME PRN CONSTIPATION Sertraline HCl 25 mg 09/05/17 21:00 09/09/17 08:12 Zoloft* PO 25 mg BID AMANDA Administration Vital Signs: Vital Signs Temp Pulse Resp BP Pulse Ox 98.8 F 65 18 131/82 97 09/09/17 05:38 09/09/17 05:38 09/09/17 05:38 09/09/17 05:38 09/09/17 07:34 Exam: LUNGS: clear bilaterally HEART: Reg rhythm ABDOMEN: Soft BACK: Wound clean NEUROLOGIC: right leg quads 2-3/5 Assessment/Plan: 1. Right L4 Radiculopathy with quadriceps weakness: PT/OT. Prednisone taper 2. Coronary artery disease: Lipitor/Zetia/Lisinopril/ASA 3. DVT prophylaxis: TEDS 4. Analgesia: Hydrocodone/Flexeril 09/09/17 11:44
[2017-09-09] MEDS: Atorvastatin* 80 MG TAB PO SCH (22:09)
[2017-09-10] MEDS: Ezetimibe TAB* 10 MG PO SCH (08:18)
[2017-09-10] MEDS: Aspirin EC TAB* 81 MG TAB.EC PO SCH (08:18)
[2017-09-10] MEDS: Lisinopril TAB* 5 MG PO SCH ×2 (08:18→20:24)
[2017-09-10] MEDS: predniSONE TAB* 10 MG PO SCH (08:18)
[2017-09-10] MEDS: Sertraline* 25 MG TAB PO SCH ×2 (08:18→20:25)
[2017-09-10] MEDS: Docusate CAP* 100 MG PO SCH ×2 (08:20→20:25)
--- NOTE | 2017-09-10 12:37 | PN ---
Progress Note Date of Service: 09/10/17 Note: DYLAN FONG was visited. Nursing notes read and reviewed.He has been having drainage from his back incision, not surprising as he is on prednisone. Some serosang drainage. WIll hold ASA a few days to see if it makes a difference. Current Medications: Active Medications Generic Name Dose Route Start Last Admin Trade Name Freq PRN Reason Stop Dose Admin Acetaminophen 650 mg 09/05/17 11:30 Tylenol Tab* PO Q6H PRN FEVER/PAIN Hydrocodone Bitart/Acetaminophen 1 tab 09/05/17 13:24 [place] 5-325 Tab* PO Q4H PRN PAIN - MODERATE TO SEVERE Atorvastatin Calcium 80 mg 09/05/17 21:00 09/09/17 22:09 Lipitor* PO 80 mg 2100 AMANDA Administration Bisacodyl 10 mg 09/05/17 11:30 Dulcolax Supp* [place] DAILY PRN CONSTIPATION Cyclobenzaprine HCl 10 mg 09/05/17 13:32 Flexeril Tab* PO BID PRN SPASMS Docusate Sodium 100 mg 09/05/17 21:00 09/10/17 08:20 Colace Cap* PO Not Given BID AMANDA Ezetimibe 10 mg 09/06/17 09:00 09/10/17 08:18 Zetia Tab* PO 10 mg DAILY AMANDA Administration Lisinopril 2.5 mg 09/05/17 21:00 09/10/17 08:18 Prinivil Tab* PO 2.5 mg BID AMANDA Administration Magnesium Hydroxide 30 ml 09/05/17 11:30 Milk Of Magnesia Liq* PO Q6H PRN CONSTIPATION Prednisone 30 mg 09/08/17 09:00 09/10/17 08:18 Deltasone Tab* PO 09/10/17 23:59 30 mg DAILY AMANDA Administration Prednisone 20 mg 09/11/17 09:00 Deltasone Tab* PO 09/13/17 23:55 DAILY AMANDA Prednisone 10 mg 09/14/17 09:00 Deltasone Tab* PO 09/16/17 23:55 DAILY AMANDA Senna 2 tab 09/05/17 11:30 Senokot Tab* PO BEDTIME PRN CONSTIPATION Sertraline HCl 25 mg 09/05/17 21:00 09/10/17 08:18 Zoloft* PO 25 mg BID AMANDA Administration Vital Signs: Vital Signs Temp Pulse Resp BP Pulse Ox 99.4 F 66 18 108/61 98 09/10/17 05:31 09/10/17 05:31 09/10/17 05:31 09/10/17 05:31 09/10/17 08:00 Exam: LUNGS: clear bilaterally HEART: Reg rhythm ABDOMEN: Soft BACK: Wound clean, serosang drainage some ecchymoses NEUROLOGIC: right leg quads 2-3/5 Assessment/Plan: 1. Right L4 Radiculopathy with quadriceps weakness: PT/OT. Prednisone taper 2. Coronary artery disease: Lipitor/Zetia/Lisinopril 3. DVT prophylaxis: TEDS 4. Analgesia: Hydrocodone/Flexeril 09/10/17 12:37
[2017-09-10] MEDS: Atorvastatin* 80 MG TAB PO SCH (20:25)
[2017-09-11 06:34] LABS: ABS Basophils 0.1 10^3/ul (0-0.2); ABS Eosinophils 0.1 10^3/ul (0-0.6); ABS Lymphocytes 3.2 10^3/ul (1.0-4.8); ABS Monocytes 1.1 10^3/ul (0-0.8); ABS Neutrophils 9.4 10^3/ul (1.5-7.7); ABS Nucleated RBC 0 10^3/ul; Eosinophil % 0.6 % (0-6); Hematocrit 40 % (42-52); Hemoglobin 13.7 g/dl (14.0-18.0); Lymphocyte % 22.8 % (25-47); Mean Corpuscular HGB Conc 34 g/dl (31-36); Mean Corpuscular Hemoglobin 31 pg (27-31); Mean Corpuscular Volume 90 fL (80-94); Mean Platelet Volume 7.2 um3 (7.4-10.4); Nucleated Red Blood Cells % 0.1; Platelet Count 296 10^3/ul (150-450); Red Blood Count 4.41 10^6/ul (4.0-5.4); Red Cell Distribution Width 13 % (10.5-15); White Blood Count 13.8 10^3/ul (3.5-10.8)
[2017-09-11] MEDS: predniSONE TAB* 20 MG PO SCH (07:17)
[2017-09-11] MEDS: Sertraline* 25 MG TAB PO SCH ×2 (07:17→20:47)
[2017-09-11] MEDS: Docusate CAP* 100 MG PO SCH ×2 (07:17→20:46)
[2017-09-11] MEDS: Ezetimibe TAB* 10 MG PO SCH (07:17)
[2017-09-11] MEDS: Lisinopril TAB* 5 MG PO SCH ×2 (07:17→20:46)
--- NOTE | 2017-09-11 16:37 | PN ---
Progress Note Date of Service: 09/11/17 Note: DYLAN FONG was visited. Therapy notes read and reviewed. Drainage better. Now on Prednisone 20 mg. Does pretty well. Knee haley on occasion. Current Medications: Active Medications Generic Name Dose Route Start Last Admin Trade Name Freq PRN Reason Stop Dose Admin Acetaminophen 650 mg 09/05/17 11:30 Tylenol Tab* PO Q6H PRN FEVER/PAIN Hydrocodone Bitart/Acetaminophen 1 tab 09/05/17 13:24 [place] 5-325 Tab* PO Q4H PRN PAIN - MODERATE TO SEVERE Atorvastatin Calcium 80 mg 09/05/17 21:00 09/10/17 20:25 Lipitor* PO 80 mg 2100 AMANDA Administration Bisacodyl 10 mg 09/05/17 11:30 Dulcolax Supp* [place] DAILY PRN CONSTIPATION Cyclobenzaprine HCl 10 mg 09/05/17 13:32 Flexeril Tab* PO BID PRN SPASMS Docusate Sodium 100 mg 09/05/17 21:00 09/11/17 07:17 Colace Cap* PO Not Given BID AMANDA Ezetimibe 10 mg 09/06/17 09:00 09/11/17 07:17 Zetia Tab* PO 10 mg DAILY AMANDA Administration Lisinopril 2.5 mg 09/05/17 21:00 09/11/17 07:17 Prinivil Tab* PO 2.5 mg BID AMANDA Administration Magnesium Hydroxide 30 ml 09/05/17 11:30 Milk Of Magnesia Liq* PO Q6H PRN CONSTIPATION Prednisone 20 mg 09/11/17 09:00 09/11/17 07:17 Deltasone Tab* PO 09/13/17 23:55 20 mg DAILY AMANDA Administration Prednisone 10 mg 09/14/17 09:00 Deltasone Tab* PO 09/16/17 23:55 DAILY AMANDA Senna 2 tab 09/05/17 11:30 Senokot Tab* PO BEDTIME PRN CONSTIPATION Sertraline HCl 25 mg 09/05/17 21:00 09/11/17 07:17 Zoloft* PO 25 mg BID AMANDA Administration Vital Signs: Vital Signs Temp Pulse Resp BP Pulse Ox 98.1 F 69 18 109/50 97 09/11/17 05:09 09/11/17 05:09 09/11/17 05:09 09/11/17 05:09 09/11/17 05:09 Lab Results: Laboratory Results - last 24 hr 09/11/17 06:17 WBC 13.8 H RBC 4.41 Hgb 13.7 L Hct 40 L MCV 90 MCH 31 MCHC 34 RDW 13 Plt Count 296 MPV 7.2 L Neut % (Auto) 67.9 Lymph % (Auto) 22.8 L [place] % (Auto) 8.1 H Eos % (Auto) 0.6 Baso % (Auto) 0.6 Absolute Neuts (auto) 9.4 H Absolute Lymphs (auto) 3.2 Absolute Monos (auto) 1.1 H Absolute Eos (auto) 0.1 Absolute Basos (auto) 0.1 Absolute Nucleated RBC 0 Nucleated RBC % 0.1 Exam: LUNGS: clear bilaterally HEART: Reg rhythm ABDOMEN: Soft BACK: Wound clean, scant serosang drainage some ecchymoses NEUROLOGIC: right leg quads 2-3/5 Assessment/Plan: 1. Right L4 Radiculopathy with quadriceps weakness: PT/OT. Prednisone taper 2. Coronary artery disease: Lipitor/Zetia/Lisinopril 3. DVT prophylaxis: TEDS 4. Analgesia: Hydrocodone/Flexeril 09/11/17 16:38
[2017-09-11] MEDS: Atorvastatin* 80 MG TAB PO SCH (20:46)
[2017-09-12] MEDS: Docusate CAP* 100 MG PO SCH ×2 (09:34→20:20)
[2017-09-12] MEDS: predniSONE TAB* 20 MG PO SCH (09:35)
[2017-09-12] MEDS: Lisinopril TAB* 5 MG PO SCH ×2 (09:35→20:22)
[2017-09-12] MEDS: Sertraline* 25 MG TAB PO SCH ×2 (09:35→20:22)
[2017-09-12] MEDS: Ezetimibe TAB* 10 MG PO SCH (09:35)
--- NOTE | 2017-09-12 12:44 | PMRUTEAM ---
PMRU: Team Meeting Current Status: Nursing: Current Status Skin Deviations [Lower Back] Incision Skin Deviation Description [ bloody drainage noted on dressing, no hematoma or Lower Back] mass pakpoated, incision well approximated, dressing changed with telfa, paper tape, and sterile gauze Physical Therapy: Current Status Bed Mobility Assistance Independent Transfer Moblility Assistance Supervision Transfer/Bed Mobility Rolling Walker Recommended Devices Ambulation Assistance Independent Ambulation Assistive Devices Rolling Walker Number of Feet Patient 150' Ambulated Stairs Assistance Supervision Stairs Recommended Devices Two Rails Number of Stairs 10 Manual Wheelchair Control/ Bilateral UE's Technique Wheelchair Propulsion Ability Independent Wheelchair Distance (ft) 50' Objective Comments patient demosntrates independent mobiltiy in W/C using BLE in mobility. Occupational Therapy: Current Status Upper Body Dressing Independent Lower Body Dressing Supervision Lower Body Dressing Progress without AE Bathing Supervision Toileting Supervision Toilet Transfer Supervision Shower Transfer Supervision Eating Independent Rec Therapy: Current Status Summary of Assessment and RT assessment complete and pt. is aware of RT Clinical Impression services. Pt. is very outgoing, social and has a positive outlook on life. Con't to provide leisure visits. Treatment Goals Pt. will engage in leisure activities while on the unit. Treatment Plan Provide RT services and encourage involvement. Social Work: Current Status Discharge Plan return home with support from friends and family and continued therapy Potential for Family Training pt's son and friend will be attending family training today at 1pm Anticipated Discharge Home Destination Discharge With on going therapy and support from family and friends Nutrition: Current Status Monitoring pt cont w/good appetite; consistent intake 100% of meals. Discussed heart healthy diet order 09/09. He denied having any questions regarding diet. Last BM 09/11. Labs 09/06: electrolytes WNL, glucose: 102. Prednisone tapering. No acute nutrition concerns identified at this time. Goals: Physical Therapy: Initial Goals Bed Mobility Assistance Independent Transfer Mobility Assistance Independent Transfer/Bed Mobility Rolling Walker Recommended Devices Ambulation Independent Ambulation Recommended Devices Rolling Walker Ambulation Distance 150 Stairs Assistance Independent Stair Recommended Devices Two Rails Number of Stairs 10 Physical Therapy: Updated Goals Transfer/Bed Mobility Rolling Walker Recommended Devices Occupational Therapy: Initial Goals Goals to be Completed in (Days 5-10 ) Upper Body Bathing Routine Independent,Modified Independent with Lower Body Bathing Routine Modified Independent with Upper Body Dressing Routine Independent Lower Body Dressing Routine Modified Independent with Toilet Hygeine and Clothing Modified Independent with Management Routine Toilet Transfer Routine Modified Independent with Step-In Shower Transfer Modified Independent with Routine Functional Transfers for ADL Modified Independent with Grooming Routine Independent Feeding Routine Independent Light Housekeeping Tasks Minimal Contact Assist Nutrition: Goals Intervention Goals 1. Adequate PO intake to prevent loss of lean body mass w/o promoting undesired weight gain 2. Glucose will remain WNL in the setting of steroid medications 3. Intake will support maintenance of skin integrity w/o breakdown 4. Questions regarding heart healthy diet will be answered prior to d/c Social Work: Goals Discharge Plan return home with support from friends and family and continued therapy Potential for Family Training pt's son and friend will be attending family training today at 1pm Anticipated Discharge Home Destination Discharge With on going therapy and support from family and friends Care Plan: Care Plan ADL's - Improve/Maintain Start: 09/05/17 11:49 Freq: [email or web address] Status: Active Target: Protocol: Activity Type Activity Date Activity User E-Sign Co-Sign Detail Recorded Client Recorded Date Recorded By Document 09/11/17 15:25 [id number] 09/11/17 15:25 [id number] 09/11/17 15:25 PMRU Outcome: ADL's/ADL Transfers Orders/Interventions Occupational Therapy Evaluation & Treatment Communication Tool in Patient Room Device Yes Address Deficits Secondary To: s/p L3-L4 microdiskectomy with fragmentectomy Patient to receive OT 5x/wk for 60-120 Therex min/day Self Care Management Group Therapy UE/LE ADL's with Assist Yes: Joelle ADL Transfers with Assist Yes: Joelle Toileting: Transfers,Clothing Management Yes: Joelle ,Hygeine w/Assist Light Kitchen/Laundry w/Assist Yes: Rima Progression Toward Outcome/Goals Progressing Outcome/Goals Met Pt participated well in ADL treatment session, increased independence with standing to complete perineal bathing and able to complete dressing without use of AE or physical assistance. Pt cautious in standing with ADLs to avoid R knee buckling during functional tasks. DVT Prophylaxis- Improve/Maintain Start: 09/05/17 16:47 Freq: [email or web address] Status: Complete Target: Protocol: Activity Type Activity Date Activity User E-Sign Co-Sign Detail Recorded Client Recorded Date Recorded By Document 09/10/17 08:00 [id number] 09/10/17 11:01 [id number] 09/10/17 08:00 PMRU Outcome: DVT Prophylaxis Outcome/Goals Remains Free of DVT TEDS Stockings on Every AM, Off at HS Outcome/Goals Met Remains Free of DVT Complies with DVT Prophylaxis /Treatment Discharge Planning - Improve/Maintain Start: 09/05/17 16:47 Freq: [email or web address] Status: Active Target: Protocol: Activity Type Activity Date Activity User E-Sign Co-Sign Detail Recorded Client Recorded Date Recorded By Document 09/09/17 21:42 [id number] 09/09/17 21:46 [id number] 09/09/17 21:42 PMRU Outcome: Discharge Planning Update Patient Family No Outcome/Goals Demonstrates Understanding of Discharge Plan Progression Toward Outcome/Goals Progressing Education-Improve/Maintain Start: 09/05/17 16:47 Freq: [email or web address]@1200 Status: Active Target: Protocol: Activity Type Activity Date Activity User E-Sign Co-Sign Detail Recorded Client Recorded Date Recorded By Document 09/12/17 10:02 [id number] 09/12/17 10:02 [id number] 09/12/17 10:02 PMRU Outcome: Education Outcome/Goals Encourage Questions Progression Toward Outcome/Goals Progressing Outcome/Goals Met Demonstrates Skills Required to Manage Self Care to Their Ability Mobility- Improve/Maintain Start: 09/05/17 16:47 Freq: [email or web address] Status: Active Target: Protocol: Activity Type Activity Date Activity User E-Sign Co-Sign Detail Recorded Client Recorded Date Recorded By Document 09/07/17 19:05 [id number] 09/07/17 19:05 [id number] 09/07/17 19:05 PMRU Outcome: Mobility Physical Therapy Evaluation and Yes Treatment Activity OOB with Assistance Yes WBAT Yes Device Yes Assistance Yes Patient to be seen 5x/wk for 60-120 min/ Therex day for: Mobility Training Gait Training Balance Outcome/Goals Maintain/ Achieve Baseline Mobility Status Improve Mobility Status Demonstrates Proper Use of Assistive Devices Free from Complications of Immobility Progression Toward Outcome/Goals Progressing Outcome/Goals Met Maintain/ Achieve Baseline Mobility Status Improve Mobility Status Demonstrates Proper Use of Assistive Devices Free from Complications of Immobility Bed Mobility Yes: independent mobility Transfers Yes: independent with rolling walker. Gait x ft Yes: independent with rolling walker 150' Up/Down Stairs Yes: independent up/ down 10 stairs with B rails. Neurological- Improve/Maintain Start: 09/05/17 16:47 Freq: [email or web address]@1200 Status: Active Target: Protocol: Activity Type Activity Date Activity User E-Sign Co-Sign Detail Recorded Client Recorded Date Recorded By Document 09/12/17 10:02 [id number] 09/12/17 10:02 [id number] 09/12/17 10:02 PMRU Outcome: Neurological Weakness/Aphasia Comment Numbness Outcome/Goals Improve Neurological Status Maintain/ Improve Strength/ROM Progression Toward Outcome/Goals Progressing Pain/Comfort- Improve/Maintain Start: 09/05/17 16:47 Freq: DAILY@1200 Status: Complete Target: Protocol: Activity Type Activity Date Activity User E-Sign Co-Sign Detail Recorded Client Recorded Date Recorded By Document 09/10/17 08:00 [id number] 09/10/17 11:01 [id number] 09/10/17 08:00 PMRU Outcome: Pain/Comfort Outcome/Goals Demonstrates Knowledge and Use of Available Comfort Measures Achieves Acceptable Comfort/Pain Level as Determined by Patient/Condit Outcome/Goals Met Achieves Acceptable Comfort/Pain Level as Determined by Patient/Condit Safety- Improve/Maintain Start: 09/05/17 16:47 Freq: DAILY@1200 Status: Active Target: Protocol: Activity Type Activity Date Activity User E-Sign Co-Sign Detail Recorded Client Recorded Date Recorded By Document 09/12/17 10:02 [id number] 09/12/17 10:02 [id number] 09/12/17 10:02 PMRU Outcome: Safety Outcome/Goals Remain Free of Injury or Harm Cooperates with Safety Measures for Least Restrictive Environment Prevent Falls/ Injury Progression Toward Outcome/Goals Progressing Outcome/Goals Met Remain Free of Injury or Harm Cooperates with Safety Measures for Least Restrictive Environment Prevent Falls/ Injury Skin- Improve/Maintain Start: 09/05/17 16:47 Freq: DAILY@1200 Status: Active Target: Protocol: Activity Type Activity Date Activity User E-Sign Co-Sign Detail Recorded Client Recorded Date Recorded By Document 09/12/17 10:02 [id number] 09/12/17 10:02 [id number] 09/12/17 10:02 PMRU Outcome: Skin Skin Risk Level Medium Skin Orders Dressing Change Teach Patient Outcome/Goals Surgical Incisions Healing Progression Toward Outcome/Goals Progressing Outcome/Goals Met Free from Decubitus Medicine Note: Length of Stay: 1 day Anticipated Discharge Destination: Home Tentative Discharge Date: 09/13/17 Discharged to: Home
--- NOTE | 2017-09-12 17:42 | PN ---
Progress Note Date of Service: 09/12/17 Note: DYLAN FONG was visited. Therapy notes read and reviewed. he was discussed in interdisciplinary team rounds. He has done well and is ready to go home. Still some drainage from back- appears to be slowing. Current Medications: Active Medications Generic Name Dose Route Start Last Admin Trade Name Freq PRN Reason Stop Dose Admin Acetaminophen 650 mg 09/05/17 11:30 Tylenol Tab* PO Q6H PRN FEVER/PAIN Hydrocodone Bitart/Acetaminophen 1 tab 09/05/17 13:24 [place] 5-325 Tab* PO Q4H PRN PAIN - MODERATE TO SEVERE Atorvastatin Calcium 80 mg 09/05/17 21:00 09/11/17 20:46 Lipitor* PO 80 mg 2100 AMANDA Administration Bisacodyl 10 mg 09/05/17 11:30 Dulcolax Supp* [place] DAILY PRN CONSTIPATION Cyclobenzaprine HCl 10 mg 09/05/17 13:32 Flexeril Tab* PO BID PRN SPASMS Docusate Sodium 100 mg 09/05/17 21:00 09/12/17 09:34 Colace Cap* PO Not Given BID AMANDA Ezetimibe 10 mg 09/06/17 09:00 09/12/17 09:35 Zetia Tab* PO 10 mg DAILY AMANDA Administration Lisinopril 2.5 mg 09/05/17 21:00 09/12/17 09:35 Prinivil Tab* PO 2.5 mg BID AMANDA Administration Magnesium Hydroxide 30 ml 09/05/17 11:30 Milk Of Magnesia Liq* PO Q6H PRN CONSTIPATION Prednisone 20 mg 09/11/17 09:00 09/12/17 09:35 Deltasone Tab* PO 09/13/17 23:55 20 mg DAILY AMANDA Administration Prednisone 10 mg 09/14/17 09:00 Deltasone Tab* PO 09/16/17 23:55 DAILY AMANDA Senna 2 tab 09/05/17 11:30 Senokot Tab* PO BEDTIME PRN CONSTIPATION Sertraline HCl 25 mg 09/05/17 21:00 09/12/17 09:35 Zoloft* PO 25 mg BID AMANDA Administration Vital Signs: Vital Signs Temp Pulse Resp BP Pulse Ox 98.6 F 91 18 112/79 97 09/12/17 15:35 09/12/17 15:35 09/12/17 15:35 09/12/17 15:35 09/12/17 16:48 Exam: LUNGS: clear bilaterally HEART: Reg rhythm ABDOMEN: Soft BACK: Wound clean, scant serosang drainage some ecchymoses NEUROLOGIC: right leg quads 3/5 Assessment/Plan: 1. Right L4 Radiculopathy with quadriceps weakness: PT/OT. Prednisone taper 2. Coronary artery disease: Lipitor/Zetia/Lisinopril. Resume ASA 3. DVT prophylaxis: TEDS 4. Analgesia: Hydrocodone/Flexeril 09/12/17 17:42
[2017-09-12] MEDS: Atorvastatin* 80 MG TAB PO SCH (20:22)
[2017-09-13 06:20] VITALS: BP 104/67
[2017-09-13 06:52] LABS: ABS Basophils 0.2 10^3/ul (0-0.2); ABS Eosinophils 0.1 10^3/ul (0-0.6); ABS Lymphocytes 3.2 10^3/ul (1.0-4.8); ABS Monocytes 0.9 10^3/ul (0-0.8); ABS Neutrophils 8.4 10^3/ul (1.5-7.7); ABS Nucleated RBC 0 10^3/ul; Eosinophil % 0.6 % (0-6); Hematocrit 41 % (42-52); Hemoglobin 14.1 g/dl (14.0-18.0); Lymphocyte % 25.1 % (25-47); Mean Corpuscular HGB Conc 34 g/dl (31-36); Mean Corpuscular Hemoglobin 31 pg (27-31); Mean Corpuscular Volume 91 fL (80-94); Nucleated Red Blood Cells % 0; Platelet Count 303 10^3/ul (150-450); Red Blood Count 4.51 10^6/ul (4.0-5.4); Red Cell Distribution Width 13 % (10.5-15); White Blood Count 12.8 10^3/ul (3.5-10.8)
[2017-09-13 07:24] LABS: EGFR Non-African American 100.2 (>60)
[2017-09-13] MEDS: Docusate CAP* 100 MG PO SCH (08:56)
[2017-09-13] MEDS: Lisinopril TAB* 5 MG PO SCH (08:59)
[2017-09-13] MEDS: Ezetimibe TAB* 10 MG PO SCH (09:00)
[2017-09-13] MEDS: Sertraline* 25 MG TAB PO SCH (09:00)
[2017-09-13] MEDS: predniSONE TAB* 20 MG PO SCH (09:00)
[2017-09-14] MEDS ORDERED: predniSONE TAB* 10 MG PO SCH (09:00)
--- NOTE | 2017-09-14 12:33 | DS ---
CC: Dr. Howard Henley * DISCHARGE SUMMARY: DATE OF ADMISSION: 09/05/17 DATE OF DISCHARGE: 09/13/17 DISCHARGE DIAGNOSES: 1. Right L4 lumbar radiculopathy. 2. Quadriceps weakness as a result of #1. 3. Coronary artery disease. 4. Status post myocardial infarct, remote. HISTORY OF PRESENT ILLNESS/HOSPITAL COURSE: For complete history of the events leading up to his rehab stay, please see the history and physical dictated by me on 09/05/17. While on the rehab unit, the patient was tapered off his prednisone. His wound appeared to be clean. There was some minimal drainage from the wound, but it was a clean drainage. He had right leg weakness, which seemed to be improving throughout his rehab stay. The patient was seen by Physical and Occupational Therapy and made good gains with both disciplines. With physical therapy at the time of admission, the patient required contact guard to min assist to do a transfer. He was contact guard to ambulate with a rolling walker. He had trouble with his leg buckling. With occupational therapy at the time of admission, the patient was with moderate amount of assistance for lower body dressing; supervision, upper body dressing; min assist , bathing; contact guard for toileting. By the time of discharge, the patient was independent with transfers, independent with ambulating 150 feet, independent knee immobilizer going up and down steps, supervision for tub transfers, supervision for bathing, standing in the shower, supervision for toileting, toilet transfers were independent, independent for upper body dressing, supervision for lower body dressing. The patient's significant other , , came in for family training prior to discharge. The patient was discharged home on 09/13/17. DISCHARGE DIET: Regular. DISCHARGE MEDICATIONS: 1. Lipitor 80 mg daily. 2. Flexeril 10 mg twice daily as needed. 3. Zetia 10 mg daily. 4. [place] 5/325 one tablet every 4 hours as needed. 5. Lisinopril 2.5 mg twice daily. 6. Zoloft 25 mg twice daily. 7. Prednisone 10 mg daily for 3 days, then stopping. 8. Aspirin 81 mg daily. SERVICES AFTER DISCHARGE: The patient will have outpatient physical therapy at [facility] and [facility]. FOLLOWUP: With Dr. Munoz in 7 to 10 days. He will also follow up with his primary care doctor, Dr. Howard Henley. [id number]/[facility] #: [id number] CAREN
== END 2017-09-13 11:00 | disposition home or self-care (01) | DRG 862 ==
LOC: PMRU 10:02
PROVIDERS: ADMIT Physical Medicine & Rehabilitation; ATTEND Physical Medicine & Rehabilitation
PROC: F07Z5ZZ Bed Mobility Treatment (ICD-10-PCS; principal; 2017-09-05)
PROC: F07Z9ZZ Gait Training/Functional Ambulation Treatment (ICD-10-PCS; 2017-09-05)
PROC: F07Z8ZZ Transfer Training Treatment (ICD-10-PCS; 2017-09-05)
PROC: F07Z4ZZ Wheelchair Mobility Treatment (ICD-10-PCS; 2017-09-05)
PROC: F08Z0ZZ Bathing/Showering Techniques Treatment (ICD-10-PCS; 2017-09-05)
PROC: F08Z1ZZ Dressing Techniques Treatment (ICD-10-PCS; 2017-09-05)
PROC: F08Z3ZZ Feeding/Eating Treatment (ICD-10-PCS; 2017-09-05)
DX: Z48.89 Encounter for other specified surgical aftercare (principal); M51.16 Intervertebral disc disorders with radiculopathy, lumbar region; M62.81 Muscle weakness (generalized); I25.10 Atherosclerotic heart disease of native coronary artery without angina pectoris; I25.2 Old myocardial infarction; Z79.82 Long term (current) use of aspirin; Z79.52 Long term (current) use of systemic steroids; Z79.899 Other long term (current) drug therapy
CPT/HCPCS: 36415; 80053; 85025; A9270-GY; J7512